=== PATIENT | female | born 1955 | race Caucasian/White ===

== ENCOUNTER → 2016-04-07 | Outpatient (CLI) | payer MEDICARE, OTHER ==
[2016-04-07 13:36] LABS: ALT 35 U/L (9-52); AST 35 U/L (14-36); Alkaline Phosphatase 88 U/L (38-126); Anion Gap 10 mmol/L; Blood Urea Nitrogen 16 mg/dL (7-17); Calcium 9.5 mg/dL (8.4-10.2); Carbon Dioxide 30 mmol/L (22-30); Chloride 104 mmol/L (98-107); Cholesterol 174 mg/dL (<200); Glucose 91 mg/dL (74-99); HDL Cholesterol 61 mg/dL (40-60); Non-African American GFR(MDRD) >60 (>60 ml/min/1.73 sqM); Potassium 4.4 mmol/L (3.5-5.1); Sodium 144 mmol/L (137-145); Total Bilirubin 0.9 mg/dL (0.2-1.3); Total Protein 7.1 g/dL (6.3-8.2); Triglycerides 88 mg/dL (<150)
== END | disposition home or self-care (01) ==
LOC: LABWHC1 11:45
PROVIDERS: ATTEND Internal Medicine Interventional Cardiology
DX: E78.2 Mixed hyperlipidemia (principal)
CPT/HCPCS: 36415; 80053; 80061

== ENCOUNTER → 2016-07-11 | Outpatient (CLI) | payer MEDICARE, OTHER ==
--- NOTE | 2016-07-12 11:35 | MM ---
Reason for exam: screening (asymptomatic). Last mammogram was performed 1 year and 1 month ago. History: Patient is postmenopausal and has history of endometrial cancer at age 24. Reductions of both breasts, 2003. Implant Removal of both breasts, 2001. Saline implants in both breasts, July 13, 1994. Saline implants in both breasts, July 13, 1984. Pre-pectoral silicone gel implants in both breasts, July 13, 1974. Took estrogen for 6 months. Physical Findings: A clinical breast exam by your physician is recommended on an annual basis and results should be correlated with mammographic findings. MG 3D Screening Mammo W/Cad Bilateral CC and MLO view(s) were taken. Prior study comparison: June 16, 2015, bilateral MG 3d screening mammo w/cad. April 16, 2012, bilateral digital screening mammo w/CAD. There are scattered fibroglandular densities. There is no discrete abnormality. No significant changes when compared with prior studies. ASSESSMENT: Negative, BI-RAD 1 RECOMMENDATION: Routine screening mammogram of both breasts in 1 year.
== END | disposition home or self-care (01) ==
LOC: RADMAMWWP 15:04
PROVIDERS: ATTEND Family Medicine
DX: Z12.31 Encounter for screening mammogram for malignant neoplasm of breast (principal)
CPT/HCPCS: 77063; G0202

== ENCOUNTER 2017-03-01 18:53 | Emergency (ER) | payer MEDICARE, OTHER ==
[~2017-03-01 18:53] MED LIST: SODIUM CHLORIDE 0.9% 1,000 ML BAG ONE
[2017-03-01] MEDS ORDERED: PANTOPRAZOLE 40 MG/10 ML VIAL ONE (22:35)
[2017-03-01] MEDS ORDERED: KETOROLAC 30 MG/ML 1 ML VIAL ONE (22:35)
[2017-03-01] MEDS ORDERED: ONDANSETRON 4 MG/2 ML VIAL ONE (22:35)
--- NOTE | 2017-03-02 09:46 | CT ---
EXAMINATION TYPE: CT abdomen pelvis w con DATE OF EXAM: 03/02/2017 COMPARISON: November 13, 2011 HISTORY: Abdominal pain, nausea vomiting diarrhea for [address] DLP: 617 mGycm Automated exposure control for dose reduction was used. TECHNIQUE: Helical acquisition of images was performed from the lung bases through the pelvis. 100 m L Omnipaque 300 was injected. Coronal and sagittal reformatted images reviewed at the workstation. FINDINGS: Lung bases are clear. There is a calcified granuloma at the left lung base which is unchanged since t he previous study in 2011. No pleural pericardial effusion is identified. There are multiple hypodens e foci within the liver which are most consistent with cysts. There is a hypervascular lesion noted i n the posterior right hepatic lobe which is unchanged when compared to the previous study and given i ts stability is most consistent with a hemangioma. The gallbladder is surgically absent. The spleen, adrenal glands, pancreas, and kidneys are unremarka ble. There is symmetric enhancement and excretion of contrast from both of the kidneys. No hydronephr osis is identified. The appendix is not definitively visualized. Nonspecific colonic wall thickening is noted in the proximal through mid transverse colon which could be due to mild colitis. There is mild diverticulosis without evidence of acute diverticulitis. The u rinary bladder is unremarkable. There is no free intraperitoneal air or free fluid. There are no abnormally enlarged mesenteric or re troperitoneal lymph nodes. Calcifications are identified in the abdominal aorta. Degenerative changes are noted in the lumbar spine with vacuum disc phenomenon noted at the level of L4-5 and L5-S1. IMPRESSION: Nonspecific colonic wall thickening is identified which could be due to mild colitis.
[2017-03-02 13:54] LABS: Basophils # (A) 0.1 k/uL (0-0.2); Basophils % (A) 1 %; Eosinophils # (A) 0.1 k/uL (0-0.7); Eosinophils % (A) 1 %; HGB 15.7 gm/dL (11.4-16.0); Lymphocytes % (A) 30 %; MCH 29.4 pg (25.0-35.0); MCHC 32.6 g/dL (31.0-37.0); MCV 90.2 fL (80.0-100.0); Mean Platelet Volume 7.6; Monocytes # (A) 0.4 k/uL (0-1.0); Monocytes % (A) 4 %; Neutrophils # (A) 6.3 k/uL (1.3-7.7); Neutrophils % (A) 63 %; Platelet Count 427 k/uL (150-450); RBC 5.32 m/uL (3.80-5.40); RDW 14.6 % (11.5-15.5); WBC 9.9 k/uL (3.8-10.6)
[2017-03-02 16:23] LABS: ALT 37 U/L (9-52); AST 27 U/L (14-36); Albumin 4.8 g/dL (3.5-5.0); Alkaline Phosphatase 86 U/L (38-126); Amylase 64 U/L (30-110); Anion Gap 14 mmol/L; Blood Urea Nitrogen 18 mg/dL (7-17); Calcium 10.1 mg/dL (8.4-10.2); Carbon Dioxide 26 mmol/L (22-30); Chloride 101 mmol/L (98-107); Glucose 87 mg/dL (74-99); Lipase 87 U/L (23-300); Magnesium 2.1 mg/dL (1.6-2.3); Potassium 4.4 mmol/L (3.5-5.1); Sodium 141 mmol/L (137-145); Total Bilirubin 0.5 mg/dL (0.2-1.3); Total Protein 7.9 g/dL (6.3-8.2)
[2017-03-02 16:33] LABS: Amorphous Sediment,Urine Occasional /hpf; Appearance,Urine Clear (Clear); Bacteria,Urine Many /hpf; Bilirubin,Urine Negative (Negative); Blood,Urine Moderate (Negative); Color,Urine Yellow; Glucose,Urine (UA) Negative (Negative); Ketones,Urine 2+ (Negative); Leukocyte Esterase,Urine Negative (Negative); Mucus,Urine Rare /hpf; Nitrite,Urine Negative (Negative); Protein,Urine Trace (Negative); RBC,Urine 10 /hpf (0-5); Specific Gravity,Urine >1.050 (1.001-1.035); Squamous Epithelial Cell,Urine 6 /hpf (0-4); Urobilinogen,Urine <2.0 mg/dL (<2.0); WBC,Urine 18 /hpf (0-5)
== END 2017-03-02 00:45 | disposition home or self-care (01) ==
LOC: EC 18:53
DX: K52.9 Noninfective gastroenteritis and colitis, unspecified (principal); R11.10 Vomiting, unspecified; Z90.49 Acquired absence of other specified parts of digestive tract
CPT/HCPCS: 36415; 80053; 82150; 83690; 83735; 85025; 81001; 87086; 74177; 99284; 96374; 96375 ×2; 96361; Q9967

== ENCOUNTER → 2017-04-02 | Day surgery (SDC) | payer MEDICARE, OTHER ==
[2017-03-28 15:12] VITALS: BMI 28.1
[~2017-04-02] MED LIST changes: +GLYCOPYRROLATE 0.2 MG/ML 2 ML VIAL ONE; +LACTATED RINGERS 1,000 ML IV SCH; +LIDOCAINE 1% 20 ML VIAL (10MG/ML) FOR IV START INTRADERMA PRN; +LIDOCAINE 1% INJ 10MG/ML (20 ML MDV) ONE; +PROPOFOL 10 MG/ML 20 ML VIAL IV ONE; -SODIUM CHLORIDE 0.9% 1,000 ML BAG ONE
[2017-04-02 10:33] VITALS: RESP 16; TEMP 97.3
[2017-04-02 11:43] VITALS: BP 138/82; PULSE 86
--- NOTE | 2017-04-07 18:55 | P.PCN ---
Date of Procedure: 04/02/17 Procedure(s) Performed: Procedure: Esophagogastroduodenoscopy and biopsy. Preoperative diagnosis: Chronic reflux symptoms requiring therapy. Postoperative diagnosis: 1. Small sliding hiatal hernia with no obvious esophagitis or complicated reflux disease. 2. Mild gastritis and duodenitis. 3. Multiple biopsies obtained from the duodenum, antrum and esophagus. Preparation and sedation: Was provided by anesthesia. Brief clinical history: The patient is a 61-year-old female who is scheduled for this evaluation because of chronic reflux symptoms requiring therapy. This evaluation is to assess for esophagitis, complicated reflux disease or other pathology. Procedure: With the patient on her left lateral decubitus position and after informed consent and adequate sedation, I passed the Olympus-GIF 160 video upper endoscope through the cricopharyngeus down the esophagus. GE junction was around 36 cm from the incisors and there was a small sliding hiatal hernia. The esophagus did not show any erosions, ulcers, strictures or Barboza's esophagus. The endoscope was then passed into the stomach which was insufflated with air and inspected in detail including the retroflex view in the cardia. There was some mottling and erythema in the antrum consistent with mild gastritis but no ulcers or erosions. Pyloric channel did not show any ulcers. Duodenal bulb, post bulbar area and descending duodenum showed minimal erythema but no ulcers or erosions. Because of her symptoms and findings, I obtained biopsies from the duodenum, antrum and esophagus then the endoscope was withdrawn. The patient tolerated the procedure well. Plan: The patient was reassured. Will await biopsy results. She will follow- up with you as planned and further plans will be made based on her course and biopsy results. We would be happy to see in follow-up if needed.
== END ==
LOC: ORWHC2ENDO 08:58
DX: K21.9 Gastro-esophageal reflux disease without esophagitis (principal); K29.70 Gastritis, unspecified, without bleeding; K44.9 Diaphragmatic hernia without obstruction or gangrene; K58.9 Irritable bowel syndrome, unspecified; I25.119 Atherosclerotic heart disease of native coronary artery with unspecified angina pectoris; I10 Essential (primary) hypertension; F17.210 Nicotine dependence, cigarettes, uncomplicated; E78.5 Hyperlipidemia, unspecified; E07.9 Disorder of thyroid, unspecified; J44.9 Chronic obstructive pulmonary disease, unspecified; F41.9 Anxiety disorder, unspecified; Z79.899 Other long term (current) drug therapy; Z88.2 Allergy status to sulfonamides
CPT/HCPCS: 88305; 88342; 43239; J2001; J2704

== ENCOUNTER → 2017-10-16 | Outpatient (CLI) | payer MEDICARE, OTHER ==
[2017-10-16 17:26] LABS: HCT 40.6 % (34.0-46.0); HGB 13.6 gm/dL (11.4-16.0); MCH 29.7 pg (25.0-35.0); MCHC 33.5 g/dL (31.0-37.0); MCV 88.7 fL (80.0-100.0); Mean Platelet Volume 6.2; Platelet Count 361 k/uL (150-450); RBC 4.58 m/uL (3.80-5.40); RDW 13.6 % (11.5-15.5); WBC 8.6 k/uL (3.8-10.6)
[2017-10-16 17:35] LABS: Partial Thromboplastin Time 24.3 sec (22.0-30.0); Prothrombin Time 9.9 sec (9.0-12.0)
[2017-10-16 17:43] LABS: ALT 36 U/L (9-52); AST 32 U/L (14-36)
== END | disposition home or self-care (01) ==
LOC: LABWHC1 16:45
PROVIDERS: ATTEND Psychiatry & Neurology Neurology
DX: D68.9 Coagulation defect, unspecified (principal)
CPT/HCPCS: 36415; 84450; 84460; 85027; 85610; 85730

== ENCOUNTER → 2017-11-12 | Outpatient (CLI) | payer MEDICARE, OTHER ==
[2017-11-12 15:05] LABS: Anion Gap 7 mmol/L; Blood Urea Nitrogen 15 mg/dL (7-17); Calcium 9.7 mg/dL (8.4-10.2); Carbon Dioxide 30 mmol/L (22-30); Chloride 101 mmol/L (98-107); Creatine Kinase 193 U/L (30-135); Glucose 90 mg/dL (74-99); Potassium 4.8 mmol/L (3.5-5.1); Sodium 138 mmol/L (137-145)
[2017-11-12 15:21] LABS: T4, Free (Free Thyroxine) 1.12 ng/dL (0.78-2.19)
== END | disposition home or self-care (01) ==
LOC: LABWHC1 14:09
PROVIDERS: ATTEND Psychiatry & Neurology Neurology
DX: R53.1 Weakness (principal); R25.2 Cramp and spasm
CPT/HCPCS: 36415; 80048; 82550; 82607; 83735; 84439; 84443

== ENCOUNTER → 2018-01-07 | Outpatient (CLI) | payer MEDICARE, OTHER ==
--- NOTE | 2018-01-07 10:38 | MM ---
Reason for exam: clinical finding. Last mammogram was performed 1 year and 6 months ago. History: Patient is postmenopausal and has history of endometrial cancer at age 24. Implant Removal of both breasts, 2004. Reductions of both breasts, 2003. Implant Removal of both breasts, 2001. Saline implants in both breasts, July 13, 1994. Saline implants in both breasts, July 13, 1984. Pre-pectoral silicone gel implants in both breasts, July 13, 1974. Took estrogen for 6 months beginning at age 44. Indicated problem(s): pain in the right breast. Physical Findings: Nurse did not find any significant physical abnormalities on exam. MG 3D Diag Mammo W/Cad PARAMJIT Bilateral CC and MLO view(s) were taken. Spot compression CC, spot compression MLO, and ML view(s) were taken of the left breast. Prior study comparison: July 11, 2016, bilateral MG 3d screening mammo w/cad. June 16, 2015, bilateral MG 3d screening mammo w/cad. There are scattered fibroglandular densities. There are two new left breast masses in the central slightly lateral left breast at anterior and middle depth. Anterior mass is 1.5cm from nipple and middle depth is 5.5cm from nipple. Left axillary node appears similar to 2013. These results were verbally communicated with the patient and result sheet given to the patient on 01/07/18. ASSESSMENT: Incomplete: need additional imaging evaluation, BI-RAD 0 RECOMMENDATION: Ultrasound of both breasts. (left lower outer quadrantand right breast pain area)
--- NOTE | 2018-01-07 10:43 | USB ---
Reason for exam: additional evaluation requested from abnormal screening. History: Patient is postmenopausal and has history of endometrial cancer at age 24. Implant Removal of both breasts, 2005. Reductions of both breasts, 2004. Implant Removal of both breasts, 2001. Saline implants in both breasts, July 13, 1994. Saline implants in both breasts, July 13, 1984. Pre-pectoral silicone gel implants in both breasts, July 13, 1974. Took estrogen for 6 months beginning at age 44. US Breast Workup Limited PARAMJIT Right limited breast ultrasound including focal area of concern, retroareolar and axilla demonstrates no cystic or solid lesion seen. Left limited breast ultrasound including focal area of concern, retroareolar and axilla demonstrates a 4 x 3 x 4mm lobular, mixed lesion at 4 o'clock. Thought to correlate with the middle depth mammographic mass. Suspicious, biopsy is recommended. Recommended for the anterior mass with radiology/pathology correlation. If biopsy is benign, 6 month follow up mammography recommended. If biopsy is malignant at 4 o'clock then stereotactic recommended. These results were verbally communicated with the patient and result sheet given to the patient on 01/07/18. ASSESSMENT: Suspicious, BI-RAD 4 RECOMMENDATION: Ultrasound core biopsy of the left breast. Called Dr. Shipley with mammographic findings and has scheduled an appointment for the patient for 02/05/18 at 1:[address] Ding. Biopsy scheduled for 01/22/18 at 1:00. PRELIMINARY REPORT CALLED AND FAXED TO DR. DING ON 01/07/18.
== END | disposition home or self-care (01) ==
LOC: RADMAMWWP 07:35
PROVIDERS: ATTEND Family Medicine
DX: N64.4 Mastodynia (principal); R92.8 Other abnormal and inconclusive findings on diagnostic imaging of breast
CPT/HCPCS: 77066; 76642; G0279; 77062

== ENCOUNTER → 2018-08-18 | Outpatient (CLI) | payer MEDICARE, OTHER ==
[2018-08-18 12:55] LABS: INR 0.9 (<1.2); Partial Thromboplastin Time 23.6 sec (22.0-30.0); Prothrombin Time 9.7 sec (9.0-12.0)
[2018-08-18 21:11] LABS: Magnesium 2.1 mg/dL (1.5-2.4)
[2018-08-19 13:36] LABS: APTT 34 Sec(s) (<43); Dilute Russell Viper Venom 39 Sec(s) (<44)
== END | disposition home or self-care (01) ==
LOC: LABWHC1 11:53
PROVIDERS: ATTEND Psychiatry & Neurology Neurology
DX: D68.9 Coagulation defect, unspecified (principal); M60.9 Myositis, unspecified; R25.2 Cramp and spasm; G43.909 Migraine, unspecified, not intractable, without status migrainosus
CPT/HCPCS: 36415; 82550; 83735; 85610; 85613; 85730

== ENCOUNTER 2018-10-13 12:43 | Inpatient (IN) | payer MEDICARE, OTHER ==
[2018-10-13] MEDS ORDERED: SODIUM CHLORIDE 0.9% 1,000 ML IV STA (13:02)
[2018-10-13] MEDS ORDERED: ONDANSETRON 4 MG/2 ML VIAL IVP STA (13:02)
[2018-10-13] MEDS ORDERED: SODIUM CHLORIDE 0.9% 500 ML 500 ML IV STA (13:02)
--- NOTE | 2018-10-13 13:06 | ED ---
General Adult HPI - General Chief complaint: Chest Pain Stated complaint: Chest pain/Lt shoulder pain Time Seen by Provider: 10/13/18 12:45 Source: patient, RN notes reviewed Mode of arrival: wheelchair Limitations: no limitations - History of Present Illness Initial comments: This is a 63-year-old female who presents emergency Department with a past me dical history significant for high blood pressure high cholesterol. Patient states on she woke up from a sound sleep with a severe headache and began vomiting. Patient states she has been nauseous and vomiting since. Patient states on Saturday she started having diarrhea as well. Patient states she had one episode of significant chest pain that lasted about 15 minutes which started in the center of her chest radiating around under her left breast into her back. Patient states it subsided until this morning when she was walking a short distance and came on again and radiated in the same fashion and lasts about 15 minutes. Patient states she currently is chest pain-free. Patient states her headache is mild no way near as severe as it was when it started on . Patient denies any numbness weakness per patient denies lightheadedness or dizziness. Patient denies any fever chills. Patient states she still is very nauseated. Patient denies any abdominal pain currently. Patient states she has had pancreatitis in the past. - Related Data Home Medications Medication Instructions Recorded Confirmed ALPRAZolam [Xanax] 1 mg PO TID PRN 05/27/15 10/13/18 Levothyroxine Sodium [Synthroid] 25 mcg PO DAILY 05/27/15 10/13/18 Lisinopril-Hctz 10-12.5 mg 1 tab PO DAILY 05/27/15 10/13/18 [Zestoretic 10-12.5] Citalopram Hydrobromide 40 mg PO DAILY 01/10/18 10/13/18 [Citalopram HBr] Pantoprazole [Protonix] 40 mg PO BID 01/10/18 10/13/18 Baclofen [Lioresal] 20 mg PO HS 10/13/18 10/13/18 Allergies Allergy/AdvReac Type Severity Reaction Status Date / Time Sulfa (Sulfonamide Allergy Severe Anaphylaxis Verified 10/13/18 13:16 Antibiotics) Review of Systems ROS Statement: Those systems with pertinent positive or pertinent negative responses have been documented in the HPI. ROS Other: All systems not noted in ROS Statement are negative. Past Medical History Past Medical History: Cancer, Hyperlipidemia, Hypertension, Neurologic Disorder, Thyroid Disorder Additional Past Medical History / Comment(s): Hx. Migraines, Irritable bowel syndrome, cervical ca 1980 History of Any Multi-Drug Resistant Organisms: None Reported Past Surgical History: Breast Surgery, Cholecystectomy, Hysterectomy Additional Past Surgical History / Comment(s): Cervical fusion. EXPLORATORY LAP. BREAST IMPLANTS IN AND OUT, breast reduction 2003. COLONOSCOPY. EGD Past Anesthesia/Blood Transfusion Reactions: Previous Problems w/ Anesthesia Additional Past Anesthesia/Blood Transfusion Reaction / Comment(s): Wakes up slowly Past Psychological History: Anxiety, Depression Smoking Status: Former smoker Past Alcohol Use History: Occasional Past Drug Use History: Marijuana - Past Family History Father History Unknown: Yes Family Medical History: No Reported History Additional Family Medical History / Comment(s): of heart disease in his 60's Mother Family Medical History: Cancer Additional Family Medical History / Comment(s): of lung cancer General Exam - General Exam Comments Initial Comments: GENERAL: Patient is well-developed and well-nourished. Patient is nontoxic and well- hydrated and is in mild distress. ENT: Neck is soft and supple. No significant lymphadenopathy is noted. Oropharynx is clear. Dry mucous membranes. Neck has full range of motion without eliciting any pain. EYES: The sclera were anicteric and conjunctiva were pink and moist. Extraocular movements were intact and pupils were equal round and reactive to light. Eyelids were unremarkable. PULMONARY: Unlabored respirations. Good breath sounds bilaterally. No audible rales rhonchi or wheezing was noted. CARDIOVASCULAR: There is a regular rate and rhythm without any murmurs gallops or rubs. ABDOMEN: Soft and nontender with normal bowel sounds. No palpable organomegaly was noted. There is no palpable pulsatile mass. SKIN: Skin is clear with no lesions or rashes and otherwise unremarkable. NEUROLOGIC: Patient is alert and oriented x3. Cranial nerves II through XII are grossly intact. Motor and sensory are also intact. Normal speech, volume and content. Symmetrical smile. MUSCULOSKELETAL: Normal extremities with adequate strength and full range of motion. LYMPHATICS: No significant lymphadenopathy is noted PSYCHIATRIC: Normal psychiatric evaluation. Limitations: no limitations Course Vital Signs 10/13/18 10/13/18 10/13/18 12:45 12:59 13:47 Temperature 98.0 F Pulse Rate 90 88 Pulse Rate [ 89 Health Care Consultant ] Respiratory 18 18 Rate Blood Pressure 137/87 137/94 O2 Sat by Pulse 98 98 Oximetry 10/13/18 15:28 Temperature Pulse Rate 85 Pulse Rate [ Health Care Consultant ] Respiratory 16 Rate Blood Pressure 115/76 O2 Sat by Pulse 96 Oximetry Medical Decision Making - Medical Decision Making EKG shows normal sinus rhythm at 67 bpm VT interval is 142 QRS is 90 QT interval 376 QTC is 397. Patient's EKG shows no ST segment elevation or depression. Patient does have Q waves in leads 3 and aVF Chest x-ray shows no acute abnormality. Computed tomography scan of the brain shows no acute abnormality Patient states she still mildly nauseous but hasn't quite a bit of gastric reflux still desires the patient some Pepcid 20 noted. Patient was given Nitropaste and aspirin per rectum because of a gastric reflux. Patient has had no chest pain while in the emergency department. I spoke with Dr. Shipley and he agreed to admit the patient admitted the patient and consult cardiology. I continue the aspirin on the floor and Nitropaste on the floor - Lab Data Result diagrams: 10/13/18 12:59 10/13/18 12:59 Lab Results 10/13/18 10/13/18 10/13/18 Range/Units 12:59 12:59 12:59 WBC 10.8 H (3.8-10.6) k/uL RBC 5.30 (3.80-5.40) m/uL Hgb 15.8 (11.4-16.0) gm/dL Hct 47.0 H (34.0-46.0) % MCV 88.6 (80.0-100.0) fL MCH 29.9 (25.0-35.0) pg MCHC 33.7 (31.0-37.0) g/dL RDW 13.7 (11.5-15.5) % Plt Count 483 H (150-450) k/uL Neutrophils % 64 % Lymphocytes % 29 % Monocytes % 4 % Eosinophils % 2 % Basophils % 0 % Neutrophils # 6.9 (1.3-7.7) k/uL Lymphocytes # 3.1 (1.0-4.8) k/uL Monocytes # 0.4 (0-1.0) k/uL Eosinophils # 0.2 (0-0.7) k/uL Basophils # 0.1 (0-0.2) k/uL PT 9.8 (9.0-12.0) sec INR 0.9 (<1.2) APTT 25.1 (22.0-30.0) sec Sodium 136 L (137-145) mmol/L Potassium 4.4 (3.5-5.1) mmol/L Chloride 101 (98-107) mmol/L Carbon Dioxide 22 (22-30) mmol/L Anion Gap 13 mmol/L BUN 29 H (7-17) mg/dL Creatinine 1.17 H (0.52-1.04) mg/dL Est GFR (CKD-EPI)AfAm 57 (>60 ml/min/1.73 sqM) Est GFR (CKD-EPI)NonAf 49 (>60 ml/min/1.73 sqM) Glucose 105 H (74-99) mg/dL Calcium 9.7 (8.4-10.2) mg/dL Magnesium 2.2 (1.6-2.3) mg/dL Total Bilirubin 0.7 (0.2-1.3) mg/dL AST 39 H (14-36) U/L ALT 29 (9-52) U/L Alkaline Phosphatase 77 (38-126) U/L Troponin I (0.000-0.034) ng/mL Total Protein 8.0 (6.3-8.2) g/dL Albumin 4.8 (3.5-5.0) g/dL Amylase 68 (30-110) U/L Lipase 155 (23-300) U/L 10/13/18 Range/Units 12:59 WBC (3.8-10.6) k/uL RBC (3.80-5.40) m/uL Hgb (11.4-16.0) gm/dL Hct (34.0-46.0) % MCV (80.0-100.0) fL MCH (25.0-35.0) pg MCHC (31.0-37.0) g/dL RDW (11.5-15.5) % Plt Count (150-450) k/uL Neutrophils % % Lymphocytes % % Monocytes % % Eosinophils % % Basophils % % Neutrophils # (1.3-7.7) k/uL Lymphocytes # (1.0-4.8) k/uL Monocytes # (0-1.0) k/uL Eosinophils # (0-0.7) k/uL Basophils # (0-0.2) k/uL PT (9.0-12.0) sec INR (<1.2) APTT (22.0-30.0) sec Sodium (137-145) mmol/L Potassium (3.5-5.1) mmol/L Chloride (98-107) mmol/L Carbon Dioxide (22-30) mmol/L Anion Gap mmol/L BUN (7-17) mg/dL Creatinine (0.52-1.04) mg/dL Est GFR (CKD-EPI)AfAm (>60 ml/min/1.73 sqM) Est GFR (CKD-EPI)NonAf (>60 ml/min/1.73 sqM) Glucose (74-99) mg/dL Calcium (8.4-10.2) mg/dL Magnesium (1.6-2.3) mg/dL Total Bilirubin (0.2-1.3) mg/dL AST (14-36) U/L ALT (9-52) U/L Alkaline Phosphatase (38-126) U/L Troponin I <0.012 (0.000-0.034) ng/mL Total Protein (6.3-8.2) g/dL Albumin (3.5-5.0) g/dL Amylase (30-110) U/L Lipase (23-300) U/L Disposition Clinical Impression: Chest pain, Nausea, Gastroesophageal reflux Disposition: ADMITTED IP TO THIS [facility] Referrals: Tonny Shipley MD [Primary Care Provider] - 1-2 days Time of Disposition: 15:18
[2018-10-13] MEDS ORDERED: NITROGLYCERIN OINT 1 INCH/GM PACKET TOPICAL STA (13:10)
[2018-10-13 13:25] LABS: Basophils # (A) 0.1 k/uL (0-0.2); Basophils % (A) 0 %; Eosinophils # (A) 0.2 k/uL (0-0.7); Eosinophils % (A) 2 %; HGB 15.8 gm/dL (11.4-16.0); Lymphocytes # (A) 3.1 k/uL (1.0-4.8); Lymphocytes % (A) 29 %; MCH 29.9 pg (25.0-35.0); MCHC 33.7 g/dL (31.0-37.0); MCV 88.6 fL (80.0-100.0); Mean Platelet Volume 6.3; Monocytes # (A) 0.4 k/uL (0-1.0); Monocytes % (A) 4 %; Neutrophils # (A) 6.9 k/uL (1.3-7.7); Neutrophils % (A) 64 %; Platelet Count 483 k/uL (150-450); RDW 13.7 % (11.5-15.5); WBC 10.8 k/uL (3.8-10.6)
[2018-10-13 13:30] LABS: INR 0.9 (<1.2); Partial Thromboplastin Time 25.1 sec (22.0-30.0); Prothrombin Time 9.8 sec (9.0-12.0)
[2018-10-13 13:38] LABS: Albumin 4.8 g/dL (3.5-5.0); Calcium 9.7 mg/dL (8.4-10.2); Magnesium 2.2 mg/dL (1.6-2.3); Potassium 4.4 mmol/L (3.5-5.1); Total Bilirubin 0.7 mg/dL (0.2-1.3)
--- NOTE | 2018-10-13 13:45 | CT ---
EXAMINATION TYPE: CT brain wo con DATE OF EXAM: 10/13/2018 COMPARISON: 12/28/2012 HISTORY: Headache with dizziness. History of migraines CT DLP: 1142.4 mGycm Automated exposure control for dose reduction was used. TECHNIQUE: CT scan of the head is performed without contrast. FINDINGS: There is no acute intracranial hemorrhage or midline shift identified. There is diffuse v entricular and sulcal prominence consistent with diffuse age-related cerebral atrophy. The small-white matter interface is preserved The globes are intact and the visualized sinuses are clear. Bilatera l clarence bullosa are incidentally seen. Atherosclerosis of the intracranial vasculature is noted. IMPRESSION: No acute intracranial process.
--- NOTE | 2018-10-13 13:46 | XR ---
EXAMINATION TYPE: XR chest 2V DATE OF EXAM: 10/13/2018 COMPARISON: Chest x-ray May 27, 2015 HISTORY: Chest pain today. TECHNIQUE: Frontal and lateral views of the chest are obtained. FINDINGS: There is chronic parenchymal change without suspicious focal air space opacity, pleural ef fusion, or pneumothorax seen. The cardiac silhouette size remains within normal limits. Overlying EK G leads are redemonstrated. Anterior fusion plate lower cervical spine is again seen. Cholecystectomy clips are noted. IMPRESSION: Chronic changes without acute pulmonary process.
[2018-10-13] MEDS ORDERED: FAMOTIDINE 20 MG/2 ML VIAL IV STA (15:07)
[2018-10-13] MEDS ORDERED: ASPIRIN 300 MG SUPP RECTAL STA (15:15)
[2018-10-13] MEDS ORDERED: NITROGLYCERIN SL TABS 0.4 MG TAB SUBLINGUAL PRN (15:18)
[2018-10-13] MEDS ORDERED: PANTOPRAZOLE 40 MG/10 ML VIAL IVP STA (15:25)
[2018-10-13] MEDS ORDERED: ONDANSETRON 4 MG/2 ML VIAL IVP PRN (15:25)
--- NOTE | 2018-10-13 17:12 | P.HPIM ---
History of Present Illness 63-year-old female presented emergency room after 5 days of complaints of headache vomiting and diarrhea. Patient states she had chest pressure 2. States the nausea vomiting and headache improving diarrhea remains. Patient has history of pancreatitis lipase amylase normal in emergency room. Patient has history of migraines for which she sees Dr. Conti. Patient has a history of IBS and GERD for which she is seeing Dr. Phan in the past hopes to become patient of Dr. Jeffers. a Review of Systems Constitutional: Reports chronic headaches Cardiovascular: Reports chest pain Gastrointestinal: Reports diarrhea, Reports nausea, Reports vomiting Past Medical History Past Medical History: Cancer, Hyperlipidemia, Hypertension, Neurologic Disorder, Thyroid Disorder Additional Past Medical History / Comment(s): Hx. Migraines, Irritable bowel syndrome, cervical ca 1979 History of Any Multi-Drug Resistant Organisms: None Reported Past Surgical History: Breast Surgery, Cholecystectomy, Hysterectomy Additional Past Surgical History / Comment(s): Cervical fusion. EXPLORATORY LAP. BREAST IMPLANTS IN AND OUT, breast reduction 2003. COLONOSCOPY. EGD Past Anesthesia/Blood Transfusion Reactions: Previous Problems w/ Anesthesia Additional Past Anesthesia/Blood Transfusion Reaction / Comment(s): Wakes up slowly Past Psychological History: Anxiety, Depression Smoking Status: Former smoker Past Alcohol Use History: Occasional Past Drug Use History: Marijuana - Past Family History Father History Unknown: Yes Family Medical History: No Reported History Additional Family Medical History / Comment(s): of heart disease in his 60's Mother Family Medical History: Cancer Additional Family Medical History / Comment(s): of lung cancer Medications and Allergies Home Medications Medication Instructions Recorded Confirmed Type ALPRAZolam [Xanax] 1 mg PO TID PRN 05/27/15 10/13/18 History Levothyroxine Sodium [Synthroid] 25 mcg PO DAILY 05/27/15 10/13/18 History Lisinopril-Hctz 10-12.5 mg 1 tab PO DAILY 05/27/15 10/13/18 History [Zestoretic 10-12.5] Citalopram Hydrobromide 40 mg PO DAILY 01/10/18 10/13/18 History [Citalopram HBr] Pantoprazole [Protonix] 40 mg PO BID 01/10/18 10/13/18 History Baclofen [Lioresal] 20 mg PO HS 10/13/18 10/13/18 History Allergies Allergy/AdvReac Type Severity Reaction Status Date / Time Sulfa (Sulfonamide Allergy Severe Anaphylaxis Verified 10/13/18 13:16 Antibiotics) Physical Exam Vitals: Vital Signs Temp Pulse Pulse Resp BP Pulse Ox 10/13/18 15:47 98.1 F 10/13/18 15:28 85 16 115/76 96 10/13/18 13:47 88 18 137/94 98 10/13/18 12:59 89 10/13/18 12:45 98.0 F 90 18 137/87 98 Intake and Output 10/13/18 10/13/18 10/13/18 06:59 14:59 22:59 Other: Weight 74.843 kg - Constitutional General appearance: mild distress - EENT Eyes: PERRLA Ears: bilateral: normal - Neck Neck: normal ROM - Respiratory Respiratory: bilateral: CTA - Cardiovascular Rhythm: regular - Gastrointestinal General gastrointestinal: normal bowel sounds, soft - Integumentary Integumentary: normal - Neurologic Neurologic: CNII-XII intact - Psychiatric Psychiatric: A&O x's 3, appropriate affect, intact judgment & insight Results CBC & Chem 7: 10/13/18 12:59 10/13/18 12:59 Labs: Abnormal Lab Results - Last 24 Hours (Table) 10/13/18 10/13/18 Range/Units 12:59 12:59 WBC 10.8 H (3.8-10.6) k/uL Hct 47.0 H (34.0-46.0) % Plt Count 483 H (150-450) k/uL Sodium 136 L (137-145) mmol/L BUN 29 H (7-17) mg/dL Creatinine 1.17 H (0.52-1.04) mg/dL Glucose 105 H (74-99) mg/dL AST 39 H (14-36) U/L Chest x-ray: report reviewed CT Scan - head: report reviewed Assessment and Plan Plan: Assessment Chest pain troponin negative 1 Nausea with history of reflux Headache resolving history of migraine sees Dr. Conti Hyperlipidemia Hypertension Hypothyroidism IBS History of cervical cancer History of pancreatitis Plan Cardiology consultation
[2018-10-13] MEDS: PANTOPRAZOLE 40 MG TABLET PO SCH (17:47)
[2018-10-13] MEDS: ACETAMINOPHEN TAB 325 MG TAB PO PRN (17:49)
[2018-10-13] MEDS: NITROGLYCERIN OINT 1 INCH/GM PACKET TOPICAL SCH (18:09)
[2018-10-13] MEDS ORDERED: KETOROLAC 30 MG/ML 1 ML VIAL IVP STA (20:15)
[2018-10-13] MEDS: ALPRAZolam 1 MG TAB PO PRN (20:22)
[2018-10-13] MEDS: BACLOFEN 10 MG TAB PO SCH (20:22)
[2018-10-14] MEDS: NITROGLYCERIN OINT 1 INCH/GM PACKET TOPICAL SCH ×4 (00:17→17:07)
[2018-10-14 03:25] LABS: Cholesterol 265 mg/dL (<200); HDL Cholesterol 48 mg/dL (40-60); LDL Cholesterol,Calculated 189 mg/dL (0-99); Triglycerides 140 mg/dL (<150)
[2018-10-14] MEDS: PANTOPRAZOLE 40 MG TABLET PO SCH ×2 (06:59→17:06)
[2018-10-14] MEDS: LEVOTHYROXINE 25 MCG TAB PO SCH (06:59)
[2018-10-14] MEDS: CITALOPRAM HYDROBROMIDE 20 MG TAB PO SCH (08:55)
[2018-10-14] MEDS: ASPIRIN 325 MG TAB PO SCH (08:55)
[2018-10-14] MEDS: LISINOPRIL-HCTZ 10-12.5 MG 1 EACH TAB PO SCH (08:55)
[2018-10-14] MEDS ORDERED: REGADENOSON 0.4 MG/5 ML SYRINGE IV ONE (08:58)
[2018-10-14] MEDS ORDERED: AMINOPHYLLINE 500 MG/20 ML VIAL IV PRN (08:58)
[2018-10-14] MEDS ORDERED: CAFFEINE CITRATE 60 MG/3 ML VIAL IV PRN (08:58)
--- NOTE | 2018-10-14 08:58 | P.CRDCN ---
History of Present Illness Consult date: 10/14/18 Chief complaint: Chest pain History of present illness: This is a pleasant 63-year-old female patient with hypertension, dyslipidemia not on any treatment because of statin intolerance, as well as history of smoking, and significant family history of coronary artery disease with her father, presented to the emergency room complaining of chest discomfort. For the last few days, she has been experiencing intermittent episodes of chest discomfo rt. The discomfort is mainly in the mid of the chest, as a shooting kind of discomfort, with radiation to the left shoulder and left arm, and with associated symptoms of sweating. The chest discomfort is of variable duration. No dizziness or lightheadedness, heart racing or fluttering, or syncope. In term of workup, the EKG showed sinus rhythm without any significant ST or T-wave abnormalities concerning for ischemia. 3 sets of cardiac enzymes were checked and came in to be unremarkable. I did recommend proceeding with a stress test to rule out severe underlying coronary artery disease and also I will obtain an echocardiogram was Doppler. We'll continue following up with the patient. Past Medical History Past Medical History: Cancer, Hyperlipidemia, Hypertension, Neurologic Disorder, Thyroid Disorder Additional Past Medical History / Comment(s): Hx. Migraines, Irritable bowel syndrome, cervical ca 1979 History of Any Multi-Drug Resistant Organisms: None Reported Past Surgical History: Breast Surgery, Cholecystectomy, Hysterectomy Additional Past Surgical History / Comment(s): Cervical fusion. EXPLORATORY LAP. BREAST IMPLANTS IN AND OUT, breast reduction 2003. COLONOSCOPY. EGD Past Anesthesia/Blood Transfusion Reactions: Previous Problems w/ Anesthesia Additional Past Anesthesia/Blood Transfusion Reaction / Comment(s): Wakes up slowly Past Psychological History: Anxiety, Depression Smoking Status: Former smoker Past Alcohol Use History: Occasional Past Drug Use History: Marijuana - Past Family History Father History Unknown: Yes Family Medical History: No Reported History Additional Family Medical History / Comment(s): of heart disease in his 60's Mother Family Medical History: Cancer Additional Family Medical History / Comment(s): of lung cancer Medications and Allergies Home Medications Medication Instructions Recorded Confirmed Type ALPRAZolam [Xanax] 1 mg PO TID PRN 05/27/15 10/13/18 History Levothyroxine Sodium [Synthroid] 25 mcg PO DAILY 05/27/15 10/13/18 History Lisinopril-Hctz 10-12.5 mg 1 tab PO DAILY 05/27/15 10/13/18 History [Zestoretic 10-12.5] Citalopram Hydrobromide 40 mg PO DAILY 01/10/18 10/13/18 History [Citalopram HBr] Pantoprazole [Protonix] 40 mg PO BID 01/10/18 10/13/18 History Baclofen [Lioresal] 20 mg PO HS 10/13/18 10/13/18 History Allergies Allergy/AdvReac Type Severity Reaction Status Date / Time Sulfa (Sulfonamide Allergy Severe Anaphylaxis Verified 10/13/18 13:16 Antibiotics) Physical Exam Vitals: Vital Signs Temp Pulse Pulse Resp BP BP Pulse Ox 10/14/18 04:00 50 L 16 144/79 95 10/14/18 00:00 98 F 58 L 16 115/65 96 10/13/18 20:00 98.2 F 68 16 127/73 94 L 10/13/18 18:04 98.1 F 67 166/79 100 10/13/18 15:47 98.1 F 10/13/18 15:28 85 16 115/76 96 10/13/18 13:47 88 18 137/94 98 10/13/18 12:59 89 10/13/18 12:45 98.0 F 90 18 137/87 98 Intake and Output 10/13/18 10/14/18 10/14/18 22:59 06:59 14:59 Intake Total 480 Balance 480 Intake: Oral 480 Other: Voiding Method Toilet # Voids 1 1 Weight 74.3 kg 73.7 kg - Constitutional General appearance: no acute distress - Respiratory Respiratory: bilateral: CTA - Cardiovascular Rhythm: regular Heart sounds: normal: S1, S2 Results 10/13/18 12:59 10/13/18 12:59 Cardiac Enzymes 10/13/18 10/13/18 10/13/18 Range/Units 12:59 12:59 18:40 AST 39 H (14-36) U/L Troponin I <0.012 <0.012 (0.000-0.034) ng/mL 10/14/18 Range/Units 00:30 AST (14-36) U/L Troponin I <0.012 (0.000-0.034) ng/mL Coagulation 10/13/18 Range/Units 12:59 PT 9.8 (9.0-12.0) sec APTT 25.1 (22.0-30.0) sec Lipids 10/13/18 Range/Units 12:59 Triglycerides 140 (<150) mg/dL Cholesterol 265 H (<200) mg/dL HDL Cholesterol 48 (40-60) mg/dL CBC 10/13/18 Range/Units 12:59 WBC 10.8 H (3.8-10.6) k/uL RBC 5.30 (3.80-5.40) m/uL Hgb 15.8 (11.4-16.0) gm/dL Hct 47.0 H (34.0-46.0) % Plt Count 483 H (150-450) k/uL Comprehensive Metabolic Panel 10/13/18 Range/Units 12:59 Sodium 136 L (137-145) mmol/L Potassium 4.4 (3.5-5.1) mmol/L Chloride 101 (98-107) mmol/L Carbon Dioxide 22 (22-30) mmol/L BUN 29 H (7-17) mg/dL Creatinine 1.17 H (0.52-1.04) mg/dL Glucose 105 H (74-99) mg/dL Calcium 9.7 (8.4-10.2) mg/dL AST 39 H (14-36) U/L ALT 29 (9-52) U/L Alkaline Phosphatase 77 (38-126) U/L Total Protein 8.0 (6.3-8.2) g/dL Albumin 4.8 (3.5-5.0) g/dL Current Medications Generic Name Dose Route Start Last Admin Trade Name Freq PRN Reason Stop Dose Admin Acetaminophen 650 mg 10/13/18 17:07 10/13/18 17:49 Tylenol Tab PO 650 mg Q6HR PRN Administration Mild Pain or Fever > 100.5 Alprazolam 1 mg 10/13/18 15:50 10/13/18 20:22 Xanax PO 1 mg TID PRN Administration Anxiety Aspirin 325 mg 10/14/18 09:00 Aspirin PO DAILY ELIO Baclofen 20 mg 10/13/18 21:00 10/13/18 20:22 Lioresal PO 20 mg HS ELIO Administration Citalopram Hydrobromide 40 mg 10/14/18 09:00 Celexa PO DAILY [facility] Lisinopril/HCTZ 1 each 10/14/18 09:00 Zestoretic 10-12.5 PO DAILY [facility] Levothyroxine Sodium 25 mcg 10/14/18 06:30 10/14/18 06:59 Synthroid PO 25 mcg DAILY@0630 ELIO Administration Nitroglycerin 1 inch 10/13/18 18:00 10/14/18 06:14 Nitro-Bid Oint TOPICAL Not Given Q6HR [facility] Nitroglycerin 0.4 mg 10/13/18 15:18 Nitrostat SUBLINGUAL Q5M PRN Chest Pain Ondansetron HCl 4 mg 10/13/18 15:25 Zofran IVP Q6HR PRN Nausea And Vomiting Pantoprazole Sodium 40 mg 10/13/18 17:30 10/14/18 06:59 Protonix PO 40 mg AC-BID ELIO Administration Intake and Output 10/13/18 10/14/18 10/14/18 22:59 06:59 14:59 Intake Total 480 Balance 480 Intake: Oral 480 Other: Voiding Method Toilet # Voids 1 1 Weight 74.3 kg 73.7 kg 10/13/18 12:59 10/13/18 12:59 Assessment and Plan Assessment: Assessment #1 intermittent episodes of chest discomfort #2 hypertension #3 dyslipidemia #4 history of smoking #5 family history of CAD Plan #1 the patient was ruled out for acute coronary syndrome #2 I recommended proceeding with a stress test and echocardiogram #3 follow-up with the patient
[2018-10-14] MEDS ORDERED: SODIUM CHLORIDE 0.9% IV ONE (09:30)
[2018-10-14] MEDS ORDERED: DIPYRIDAMOLE IV ONE (09:30)
[2018-10-14] MEDS: ALPRAZolam 1 MG TAB PO PRN ×2 (10:15→21:39)
[2018-10-14] MEDS: ACETAMINOPHEN TAB 325 MG TAB PO PRN (10:15)
--- NOTE | 2018-10-14 10:56 | P.PN ---
Subjective Patient complaining of migraine with aura this morning. We'll start saline 75 an hour. Had cardiology consultation scheduled for this stress echo tomorrow Objective - Vital Signs Vital signs: Vital Signs Temp 98.3 F 10/14/18 08:00 Pulse 63 10/14/18 08:00 Resp 16 10/14/18 08:00 BP 131/82 10/14/18 08:00 Pulse Ox 95 10/14/18 08:00 Intake & Output 10/13/18 10/14/18 10/14/18 18:59 06:59 18:59 Intake Total 480 Balance 480 Weight 74.3 kg 73.7 kg Intake: Oral 480 Other: Voiding Method Toilet Toilet # Voids 1 1 2 - EENT Eyes: Present: PERRLA Ears: bilateral: normal - Neck Neck: Present: normal ROM - Respiratory Respiratory: bilateral: CTA - Cardiovascular Rhythm: regular - Gastrointestinal General gastrointestinal: Present: normal bowel sounds, soft - Integumentary Integumentary: Present: normal - Neurologic Neurologic: Present: CNII-XII intact - Psychiatric Psychiatric: Present: A&O x's 3, appropriate affect, intact judgment & insight - Labs CBC & Chem 7: 10/13/18 12:59 10/13/18 12:59 Labs: Abnormal Lab Results - Last 24 Hours (Table) 10/13/18 10/13/18 10/13/18 Range/Units 12:59 12:59 12:59 WBC 10.8 H (3.8-10.6) k/uL Hct 47.0 H (34.0-46.0) % Plt Count 483 H (150-450) k/uL Sodium 136 L (137-145) mmol/L BUN 29 H (7-17) mg/dL Creatinine 1.17 H (0.52-1.04) mg/dL Glucose 105 H (74-99) mg/dL AST 39 H (14-36) U/L Cholesterol 265 H (<200) mg/dL LDL Cholesterol, Calc 189 H (0-99) mg/dL Assessment and Plan Plan: Assessment Chest pain troponins negative 3 Nausea vomiting diarrhea History of hyperlipidemia Hypertension Hypothyroidism Migraine sees Dr. Conti IBS will be following with Dr. Hull GERD History of cervical cancer History of pancreatitis Plan IV normal saline 75 an hour 1liter Stress echo tomorrow
[2018-10-14] MEDS: SODIUM CHLORIDE 0.9% 1,000 ML IV SCH (11:03)
[2018-10-14] MEDS ORDERED: ALBUTEROL NEBULIZED 2.5 MG/3 ML INHALATION PRN (14:25)
[2018-10-14] MEDS: SYMBICORT 160-4.5 MCG INHALER INHALATION SCH ×2 (15:40→19:23)
[2018-10-14] MEDS ORDERED: SYMBICORT 160-4.5 MCG INHALER INHALATION SCH (20:00)
[2018-10-14] MEDS: BACLOFEN 10 MG TAB PO SCH (21:39)
[2018-10-15] MEDS: NITROGLYCERIN OINT 1 INCH/GM PACKET TOPICAL SCH ×5 (00:23→23:25)
[2018-10-15] MEDS: SODIUM CHLORIDE 0.9% 1,000 ML IV SCH ×2 (06:35→18:41)
[2018-10-15] MEDS: PANTOPRAZOLE 40 MG TABLET PO SCH ×3 (06:39→15:35)
[2018-10-15] MEDS: LEVOTHYROXINE 25 MCG TAB PO SCH (06:39)
[2018-10-15] MEDS: SYMBICORT 160-4.5 MCG INHALER INHALATION SCH ×2 (07:58→20:01)
[2018-10-15] MEDS ORDERED: CAFFEINE CITRATE 60 MG/3 ML VIAL IV PRN (08:09)
[2018-10-15] MEDS ORDERED: AMINOPHYLLINE 500 MG/20 ML VIAL IV PRN (08:09)
[2018-10-15] MEDS ORDERED: REGADENOSON 0.4 MG/5 ML SYRINGE IV ONE (08:09)
[2018-10-15] MEDS ORDERED: SODIUM CHLORIDE 0.9% IV ONE (08:30)
[2018-10-15] MEDS ORDERED: DIPYRIDAMOLE IV ONE (08:30)
[2018-10-15] MEDS: ALPRAZolam 1 MG TAB PO PRN ×2 (11:08→21:31)
[2018-10-15] MEDS: LISINOPRIL-HCTZ 10-12.5 MG 1 EACH TAB PO SCH (11:09)
[2018-10-15] MEDS: ACETAMINOPHEN TAB 325 MG TAB PO PRN (11:09)
[2018-10-15] MEDS: ASPIRIN 325 MG TAB PO SCH (11:09)
[2018-10-15] MEDS: CITALOPRAM HYDROBROMIDE 20 MG TAB PO SCH (11:09)
--- NOTE | 2018-10-15 11:30 | P.STRESS ---
- Stress Test Note Stress Test Results/Findings: Exam Performed: NM stress persantine cardiolite Exam Date: 10/15/18 Reason for Exam: CHEST PAIN / SOB Height: 5 ft 3 in Weight: 73.8 kg Protocol: PERSANTINE Stage: NA Duration of Exercise: NA Resting Heart Rate: 68 Resting Blood Pressure: 150/103 Maximum Achieved Heart Rate: 90 Maximum Achieved Blood Pressure: 167/103 85% PMHR: NA 100% PMHR: NA METS: NA Technologist Comment: Stress Test Results/Findings: Presenting cardio lyte stress test Mr. Byrd is 60 beats a minute, Baseline blood pressure 150/103 mmHg Baseline 12-lead ECG shows sinus rhythm with nonspecific ST-T abnormalities Patient received Persantine infusion per protocol. No significant change in heart rate and blood pressure No significant changes on twelve-lead EKG She was quite nauseous at the end and required reversal with Aminophyllin Nuclear portion be reported separately
--- NOTE | 2018-10-15 11:36 | P.PN ---
Subjective Patient had a Persantine stress this am. Complains of of exacerbation of migraine headache. Stated she had chest pressure relieved with reversal of Persantine. Discussed of hyperlipidemia patient will reorder meds. Awaiting results from stress test if negative patient will be discharged Objective - Vital Signs Vital signs: Vital Signs Temp 98.3 F 10/15/18 07:46 Pulse 61 10/15/18 07:46 Resp 18 10/15/18 07:46 BP 131/76 10/15/18 07:46 Pulse Ox 97 10/15/18 07:46 Intake & Output 10/14/18 10/15/18 10/15/18 18:59 06:59 18:59 Intake Total 480 690 Balance 480 690 Weight 73.8 kg Intake: Intake, IV Titration 450 Amount Sodium Chloride 0.9% 1, 450 000 ml @ 75 mls/hr IV . [id number] ELIO Rx#:[id number] Oral 480 240 Other: Voiding Method Toilet Toilet Toilet # Voids 2 4 2 - Constitutional General appearance: Present: mild distress - EENT Eyes: Present: PERRLA Ears: bilateral: normal - Neck Neck: Present: normal ROM - Respiratory Respiratory: bilateral: CTA - Cardiovascular Rhythm: regular - Gastrointestinal General gastrointestinal: Present: soft - Integumentary Integumentary: Present: normal - Neurologic Neurologic: Present: CNII-XII intact - Psychiatric Psychiatric: Present: A&O x's 3, appropriate affect, intact judgment & insight - Labs CBC & Chem 7: 10/13/18 12:59 10/13/18 12:59 Assessment and Plan Plan: Assessment Chest pain troponin negative 3 GERD with nausea and diarrhea Hyperlipidemia Hypertension Hypothyroidism Migraine seeing Dr. Conti IBS GERD sees Dr. Cerna History of cervical cancer History of pancreatitis Plan Continue consultation with cardiology will be discharged if stress test negative
--- NOTE | 2018-10-15 11:48 | NM ---
EXAMINATION TYPE: NM stress persantine cardiolit DATE OF EXAM: 10/15/2018 COMPARISON: NONE HISTORY: Chest pain TECHNIQUE: After the intravenous administration of 10.6 mCi Tc 99m Sestamibi - Cardiolite resting SP ECT images acquired 45 minutes post injection. The patient received 42.1 mg Persantine. 100 mg Aminophyllin was utilized. 25.4 mCi Tc 99m Sestamibi - Stress images obtained 30 minutes post injection FINDINGS: Some very subtle diminished radiotracer accumulation at the cardiac apex may be present on stress darcy ges which appears reversible on the resting images. This is best visualized on the SPECT imaging. Marito ar map under call this finding. Gated wall motion is unremarkable. Ejection fraction of 55% is normal. IMPRESSION: 1. Possible very minimal stress-induced ischemic change the cardiac apex. 2. Remainder of the stress myocardial study appears unremarkable.
--- NOTE | 2018-10-15 12:10 | P.PN ---
Progress Note - Text Progress Note Date: 10/15/18 This is a pleasant 63-year-old female patient with hypertension, dyslipidemia not on any treatment because of statin intolerance, as well as history of smoking, and significant family history of coronary artery disease with her father, presented to the emergency room complaining of chest discomfort. For the last few days, she has been experiencing intermittent episodes of chest discomfort. The discomfort is mainly in the mid of the chest, as a shooting kind of discomfort, with radiation to the left shoulder and left arm, and with associated symptoms of sweating. The chest discomfort is of variable duration. No dizziness or lightheadedness, heart racing or fluttering, or syncope. In term of workup, the EKG showed sinus rhythm without any significant ST or T-wave abnormalities concerning for ischemia. 3 sets of cardiac enzymes were checked and came in to be unremarkable. The patient underwent myocardial perfusion imaging stress test and that revealed stress-induced ischemia in the apex of the LV. I did recommend proceeding with heart catheterization to rule out severe coronar y artery disease.
[2018-10-15] MEDS: BACLOFEN 10 MG TAB PO SCH (21:31)
[2018-10-16] MEDS: SODIUM CHLORIDE 0.9% 1,000 ML IV SCH ×2 (05:00→16:28)
[2018-10-16] MEDS: NITROGLYCERIN OINT 1 INCH/GM PACKET TOPICAL SCH ×3 (05:01→16:28)
[2018-10-16] MEDS: PANTOPRAZOLE 40 MG TABLET PO SCH ×2 (06:03→16:56)
[2018-10-16] MEDS: LEVOTHYROXINE 25 MCG TAB PO SCH (06:03)
[2018-10-16] MEDS: ALPRAZolam 1 MG TAB PO PRN ×2 (06:07→12:40)
[2018-10-16 06:31] LABS: Basophils # (A) 0.1 k/uL (0-0.2); Basophils % (A) 1 %; Eosinophils # (A) 0.2 k/uL (0-0.7); Eosinophils % (A) 3 %; HCT 43.1 % (34.0-46.0); HGB 13.9 gm/dL (11.4-16.0); Lymphocytes # (A) 2.2 k/uL (1.0-4.8); Lymphocytes % (A) 33 %; MCH 29.9 pg (25.0-35.0); MCHC 32.4 g/dL (31.0-37.0); MCV 92.3 fL (80.0-100.0); Mean Platelet Volume 6.9; Monocytes # (A) 0.3 k/uL (0-1.0); Monocytes % (A) 5 %; Neutrophils # (A) 3.7 k/uL (1.3-7.7); Neutrophils % (A) 57 %; Platelet Count 324 k/uL (150-450); RBC 4.67 m/uL (3.80-5.40); RDW 15.1 % (11.5-15.5); WBC 6.5 k/uL (3.8-10.6)
[2018-10-16 06:40] LABS: ALT 23 U/L (9-52); AST 23 U/L (14-36); African American GFR (CKD) >90 (>60 ml/min/1.73 sqM); Albumin 3.8 g/dL (3.5-5.0); Alkaline Phosphatase 56 U/L (38-126); Anion Gap 4 mmol/L; Blood Urea Nitrogen 14 mg/dL (7-17); Calcium 9.2 mg/dL (8.4-10.2); Carbon Dioxide 29 mmol/L (22-30); Chloride 107 mmol/L (98-107); Glucose 100 mg/dL (74-99); Sodium 140 mmol/L (137-145); Total Bilirubin 0.5 mg/dL (0.2-1.3); Total Protein 6.3 g/dL (6.3-8.2)
[2018-10-16] MEDS: SYMBICORT 160-4.5 MCG INHALER INHALATION SCH (07:16)
[2018-10-16] MEDS: CITALOPRAM HYDROBROMIDE 20 MG TAB PO SCH (08:00)
[2018-10-16] MEDS: ASPIRIN 325 MG TAB PO SCH (08:00)
[2018-10-16] MEDS: LISINOPRIL-HCTZ 10-12.5 MG 1 EACH TAB PO SCH (08:01)
[2018-10-16] MEDS: BUTALB/APAP/CAFF 50-325-40MG TAB PO PRN ×2 (08:41→16:56)
[2018-10-16] MEDS ORDERED: ALPRAZolam 0.25 MG TAB PO PRN (09:04)
[2018-10-16] MEDS ORDERED: ASPIRIN 325 MG TAB PO STA (09:04)
[2018-10-16] MEDS ORDERED: SODIUM CHLORIDE 0.9% 1,000 ML in EMPTY BAG 1 BAG IV ONE (09:04)
[2018-10-16] MEDS ORDERED: ALPRAZolam 0.5 MG TAB PO PRN (09:04)
[2018-10-16] MEDS ORDERED: NITROGLYCERIN SL TABS 0.4 MG TAB SUBLINGUAL PRN (09:04)
[2018-10-16] MEDS: ATORVASTATIN 80 MG TAB PO STA ×2 (11:02→11:04)
--- NOTE | 2018-10-16 11:06 | P.PN ---
Subjective Patient a positive stress test yesterday showing some ischemic to the apex. Scheduled for cardiac cath today. Nurse called stating the patient was complaining of headache Fioricet ordered headache under control at this time Objective - Vital Signs Vital signs: Vital Signs Temp 98.6 F 10/16/18 03:20 Pulse 66 10/16/18 03:20 Resp 16 10/16/18 03:20 BP 120/70 10/16/18 03:20 Pulse Ox 96 10/16/18 03:20 Intake & Output 10/15/18 10/16/18 10/16/18 18:59 06:59 18:59 Intake Total 600 Balance 600 Weight 74.1 kg Intake: Oral 600 Other: Voiding Method Toilet Toilet # Voids 2 1 2 - Constitutional General appearance: Present: mild distress - EENT Eyes: Present: PERRLA Ears: bilateral: normal - Neck Neck: Present: normal ROM - Respiratory Respiratory: bilateral: CTA - Cardiovascular Rhythm: regular - Gastrointestinal General gastrointestinal: Present: soft - Integumentary Integumentary: Present: normal - Neurologic Neurologic: Present: CNII-XII intact - Psychiatric Psychiatric: Present: A&O x's 3, appropriate affect, intact judgment & insight - Labs CBC & Chem 7: 10/16/18 05:44 10/16/18 05:44 Labs: Abnormal Lab Results - Last 24 Hours (Table) 10/16/18 Range/Units 05:44 Glucose 100 H (74-99) mg/dL - Imaging and Cardiology Positive stress test with ischemia noted to the apex Assessment and Plan Plan: Assessment Chest pain stress test positive for ischemia troponins negative 3 History of hyperlipidemia Hypertension Hypothyroidism Migraine GERD/IBS seeing Dr. Cerna cervical cancer History of pancreatitis Plan Cardiac cath today
[2018-10-16 11:07] VITALS: RESP 20; TEMP 98.2
[2018-10-16 11:22] LABS: Glucose,Whole Blood 86 mg/dL (75-99)
[2018-10-16] MEDS ORDERED: MIDAZOLAM (PF) 2 MG/2 ML VIAL IVP ONE (11:35)
[2018-10-16] MEDS ORDERED: LIDOCAINE 1% INJ 10MG/ML (20 ML MDV) SQ ONE (11:38)
[2018-10-16] MEDS ORDERED: VERAPAMIL SYRINGE (5 MG/10 ML) INTRAARTER ONE ×2 (11:40→11:49)
[2018-10-16] MEDS ORDERED: HEPARIN SODIUM 1,000 UN/ML (10ML VL) IV ONE (11:42)
[2018-10-16] MEDS ORDERED: HYDROmorphone 1 MG/ML 1 ML SYRINGE IVP ONE (11:44)
[2018-10-16] MEDS ORDERED: IOPAMIDOL-370 125ML BTL INJ ONE (11:49)
[2018-10-16] MEDS ORDERED: IV FLUID CONTINUATION 1,000 ML IV ONE (11:49)
[2018-10-16] MEDS ORDERED: RX INFO: IV CONTRAST WAS GIVEN 1 EACH MISC MISCELLANE PRN (11:54)
[2018-10-16] MEDS ORDERED: SODIUM CHLORIDE 0.9% 1,000 ML IV SCH (12:00)
--- NOTE | 2018-10-16 12:24 | CC ---
CARDIAC CATHETERIZATION REPORT DATE OF SERVICE: October 16, 2018 PERFORMING PHYSICIAN: Sin Maciel MD, lockstitch coat joiner. PROCEDURE PERFORMED: 1. Selective right and left coronary angiogram. 2. Left heart catheterization. INDICATION: This is a 63-year-old female patient with hypertension and dyslipidemia who is intolerant to statin, presented to the hospital with chest discomfort, ruled out for acute non ST elevation myocardial infarction. She underwent myocardial perfusion imaging stress test and that revealed reversible defect involving the apex of the left ventricle. Because of that, a heart catheterization was advised. APPROACH: Right radial artery. COMPLICATION: None. LEVEL OF SEDATION: Moderate with sedation length of 13 minutes. PROCEDURE DESCRIPTION: After obtaining an informed consent, the patient was brought to the cardiac label folder. The right radial artery was cannulated using micropuncture technique, the micropuncture wire passed easily then I placed a 5-Upper Sorbian sheath. I did give the patient 2 mg of verapamil IA and 6000 units of heparin IV. I did perform selective right and left coronary angiogram with JR4 and JL3.5 catheters. Left heart catheterization was performed using pigtail catheter. The procedure was completed without any complication. SELECTIVE CORONARY ANGIOGRAM: 1. The right coronary artery is a large caliber vessel and it is a dominant vessel. The RCA is calcified with mild disease only. Distally bifurcates into PDA and PLV branches both appeared to be angiographically normal. 2. The left main is angiographically normal. It is a long left main. It bifurcates into left circumflex and left anterior descending artery as well as ramus intermedius. The left main has mild disease only. 3. The left circumflex is a medium caliber vessel. It is a nondominant vessel and appeared to be angiographically normal. 4. The ramus intermedius is a large caliber vessel and seems to be angiographically normal as well. 5. The LAD: The LAD is calcified in the proximal portion with mild disease only. It gives rise into the first diagonal branch which is small caliber vessel, seems to be angiographically normal. HEMODYNAMICS: The left ventricular end-diastolic pressure was 10 mmHg without significant gradient across the aortic valve. CONCLUSION: 1. Calcified right and left coronary system. 2. Mild nonobstructive coronary artery disease. POSTPROCEDURE MANAGEMENT: 1. Maximize medical treatment. 2. Aggressive cholesterol control. 3. Follow up with the patient. MMODL / IJN: [id number] /
--- NOTE | 2018-10-16 15:32 | P.DS ---
Providers Date of admission: 10/14/18 11:15 Expected date of discharge: 10/16/18 Attending physician: Tonny Shipley Consults: 10/13/18 15:18 Consult Physician Urgent Consulting Provider: [facility] Consult Reason/Comments: Chest pain Do you want consulting provider notified?: Yes Primary care physician: Tonny Shipley [facility] Course: 63-year-old female is a emergency room with complaints of chest pain nausea vomiting diarrhea. States she's had the vomiting and diarrhea for five days intermittent chest pressure. Patient was evaluated by cardiology. Had positive stress test was then given a cardiac catheterization and found to have mild not obstructing coronary artery disease. Patient will follow up with cardiology for hyperlipidemia treatment. Patient was having difficulty with migraine and was treated for the same. Assessment chest pain mild not obstructing coronary disease negative troponins history of GERD history of vomiting and diarrhea history of hyperlipidemia hypertension hypothyroidism migraine being treated by Dr. Conti history of IBS seeing Dr. Cerna history of cervical cancer history pancreatitis Plan follow up with cardiology for hyperlipidemia treatment follow up with family physician Dr. Tonny Shipley Patient Condition at Discharge: Stable Plan - Discharge Summary New Discharge Prescriptions: New Aspirin 325 mg PO DAILY tab Nitroglycerin Sl Tabs [Nitrostat] 0.4 mg SUBLINGUAL Q5M PRN #25 tab PRN Reason: Chest Pain Budesonide-Formot 160-4.5 Mcg [Symbicort 160-4.5 Mcg Inhaler] 2 puff INHALATION RT-BID puff Acetaminophen Tab [Tylenol] 650 mg PO Q6HR PRN tab PRN Reason: Mild Pain Or Fever > 100.5 Albuterol Nebulized [Ventolin Nebulized] 2.5 mg INHALATION RT-QID PRN nebu PRN Reason: Shortness Of Breath Or Wheezing Continue Levothyroxine Sodium [Synthroid] 25 mcg PO DAILY ALPRAZolam [Xanax] 1 mg PO TID PRN PRN Reason: Anxiety Lisinopril-Hctz 10-12.5 mg [Zestoretic 10-12.5] 1 tab PO DAILY Pantoprazole [Protonix] 40 mg PO BID Citalopram Hydrobromide [Citalopram HBr] 40 mg PO DAILY Baclofen [Lioresal] 20 mg PO HS Discharge Medication List ALPRAZolam [Xanax] 1 mg PO TID PRN 05/27/15 [History] Levothyroxine Sodium [Synthroid] 25 mcg PO DAILY 05/27/15 [History] Lisinopril-Hctz 10-12.5 mg [Zestoretic 10-12.5] 1 tab PO DAILY 05/27/15 [History] Citalopram Hydrobromide [Citalopram HBr] 40 mg PO DAILY 01/10/18 [History] Pantoprazole [Protonix] 40 mg PO BID 01/10/18 [History] Baclofen [Lioresal] 20 mg PO HS 10/13/18 [History] Acetaminophen Tab [Tylenol] 650 mg PO Q6HR PRN tab 10/16/18 [Rx] Albuterol Nebulized [Ventolin Nebulized] 2.5 mg INHALATION RT-QID PRN nebu 10/16/18 [Rx] Aspirin 325 mg PO DAILY tab 10/16/18 [Rx] Budesonide-Formot 160-4.5 Mcg [Symbicort 160-4.5 Mcg Inhaler] 2 puff INHALATION RT-BID puff 10/16/18 [Rx] Nitroglycerin Sl Tabs [Nitrostat] 0.4 mg SUBLINGUAL Q5M PRN #25 tab 10/16/18 [Rx] Follow up Appointment(s)/Referral(s): Tonny Shipley MD [Primary Care Provider] - 1-2 days
[2018-10-16 16:31] VITALS: BP 149/75; PULSE 50
== END 2018-10-16 18:12 | disposition home or self-care (01) | DRG 287 ==
LOC: EC 12:43 → 3SCARD 15:18 → OBSVTOIN 10-14 11:15
PROVIDERS: ADMIT Family Medicine; ATTEND Family Medicine
PROC: B2111ZZ Fluoroscopy of Multiple Coronary Arteries using Low Osmolar Contrast (ICD-10-PCS; 2018-10-16)
PROC: 4A023N7 Measurement of Cardiac Sampling and Pressure, Left Heart, Percutaneous Approach (ICD-10-PCS; principal; 2018-10-16 10:25)
DX: R07.9 Chest pain, unspecified (principal); G43.109 Migraine with aura, not intractable, without status migrainosus; I10 Essential (primary) hypertension; I25.10 Atherosclerotic heart disease of native coronary artery without angina pectoris; K21.9 Gastro-esophageal reflux disease without esophagitis; F41.9 Anxiety disorder, unspecified; E03.9 Hypothyroidism, unspecified; E78.00 Pure hypercholesterolemia, unspecified; E78.5 Hyperlipidemia, unspecified; F32.9 Major depressive disorder, single episode, unspecified; R11.2 Nausea with vomiting, unspecified; K58.0 Irritable bowel syndrome with diarrhea; Z79.890 Hormone replacement therapy; Z79.899 Other long term (current) drug therapy; Z90.710 Acquired absence of both cervix and uterus; Z87.891 Personal history of nicotine dependence; Z85.41 Personal history of malignant neoplasm of cervix uteri; Z88.2 Allergy status to sulfonamides; Z90.49 Acquired absence of other specified parts of digestive tract; Z80.1 Family history of malignant neoplasm of trachea, bronchus and lung; Z82.49 Family history of ischemic heart disease and other diseases of the circulatory system
CPT/HCPCS: 36415; 70450; 71046; 78452; 80053; 80061; 82150; 83690; 83735; 84484; 85025; 85610; 85730; 93005; 93017; 93306; 93458; 94640; 94760; 96361; 96374; 96375; 99285

== ENCOUNTER → 2018-10-22 | Outpatient (CLI) | payer MEDICARE, OTHER ==
--- NOTE | 2018-10-22 14:07 | MR ---
EXAMINATION TYPE: MR cervical spine wo/w con DATE OF EXAM: 10/22/2018 COMPARISON: MRI of the cervical spine dated 12/27/2015 HISTORY: Cervical Myelopathy TECHNIQUE: Multiplanar, multisequence images of the cervical spine were acquired utilizing 7.5 mL intravenous Ga davist gadolinium contrast. Diffusion weighted imaging was performed. FINDINGS: There is redemonstration of anterior cervical fusion of C5-C6. There is straightening of th e upper cervical lordosis. Vertebral body heights and overall alignment are maintained. Small posteri or projecting disc osteophyte complex at C4-C5. No abnormal prevertebral soft tissue swelling. Cerebe llar tonsils are low-lying without herniation. C2-C3: There is disc desiccation and a small broad-based disc bulge without spinal canal stenosis nor neural foraminal narrowing. C3-C4: There is a very small central disc osteophyte complex and minimal uncovertebral hypertrophy. T here is narrowing of the ventral subarachnoid space without significant spinal canal stenosis nor sherrell ral foraminal narrowing. C4-C5: There is a posterior disc osteophyte complex and central disc herniation as well as uncoverteb ral hypertrophy and facet arthropathy contributing to moderate left and [id number] right neural foraminal narrowing and mild spinal canal stenosis. C5-C6: Postoperative changes of an anterior cervical fusion is seen. There is redemonstration of abno rmal spinal cord signal at C5-C6 and volume loss of the spinal cord compatible with myelomalacia. The re remains uncovertebral hypertrophy moderately narrowing the left neural foramen and mildly narrowin g the right neural foramen. No spinal canal stenosis.. C6-C7: Uncovertebral hypertrophy and facet arthropathy moderately narrow the left neural foramen and mildly narrow the right neural foramen. Broad-based disc bulge minimally narrows the ventral subarach noid space without spinal canal stenosis. C7-T1: There is a central disc herniation without spinal canal stenosis nor neural foraminal narrowin g. There is no abnormal enhancement of the spinal cord nor cervical spine. IMPRESSION: 1. New central disc herniations at C4-C5 and C7-T1 without spinal canal stenosis. 2. Postoperative change at C5-C6 with redemonstration of focal myelomalacia at this level. No abnorma l enhancement to suggest epidural fibrosis or enhancing spinal cord lesion. 3. Moderate multilevel degenerative disc disease creating variable degrees of neural foraminal narrow ing as detailed above, slightly worsened from the prior 2016.
== END | disposition home or self-care (01) ==
LOC: RADMRIMAIN 12:42
PROVIDERS: ATTEND Psychiatry & Neurology Neurology
DX: M50.221 Other cervical disc displacement at C4-C5 level (principal); M50.30 Other cervical disc degeneration, unspecified cervical region; M48.02 Spinal stenosis, cervical region
CPT/HCPCS: 72156; A9585

== ENCOUNTER 2020-02-02 16:10 | Emergency (ER) | payer MEDICARE, OTHER ==
[2020-02-02 16:29] VITALS: TEMP 97.5
--- NOTE | 2020-02-02 16:44 | ED ---
General Adult HPI - General Chief complaint: Shortness of Breath Stated complaint: SOB Time Seen by Provider: 02/02/20 16:25 Source: patient, RN notes reviewed, old records reviewed Mode of arrival: wheelchair Limitations: no limitations - History of Present Illness Initial comments: This is a 64-year-old female who presents emergency department with past medical history significant for COPD. Patient states she was exposed to COVID by her granddaughter who lives with her. Patient states over the last few days she has had some diarrhea and more shortness of breath as well as feeling overall fatigued. Patient states she also has lost her sense of taste. Patient denies any fever chills per patient denies any abdominal pain patient denies any vo miting diarrhea. Patient denies any headache patient denies lightheadedness dizziness or near syncopal episode. - Related Data Home Medications Medication Instructions Recorded Confirmed ALPRAZolam [Xanax] 1 mg PO TID PRN 05/27/15 10/13/18 Levothyroxine Sodium [Synthroid] 25 mcg PO DAILY 05/27/15 10/13/18 Lisinopril-Hctz 10-12.5 mg 1 tab PO DAILY 05/27/15 10/13/18 [Zestoretic 10-12.5] Citalopram Hydrobromide 40 mg PO DAILY 01/10/18 10/13/18 [Citalopram HBr] Pantoprazole [Protonix] 40 mg PO BID 01/10/18 10/13/18 Baclofen [Lioresal] 20 mg PO HS 10/13/18 10/13/18 Previous Rx's Medication Instructions Recorded Acetaminophen Tab [Tylenol] 650 mg PO Q6HR PRN tab 10/16/18 Albuterol Nebulized [Ventolin 2.5 mg INHALATION RT-QID PRN nebu 10/16/18 Nebulized] Aspirin 325 mg PO DAILY tab 10/16/18 Budesonide-Formot 160-4.5 Mcg 2 puff INHALATION RT-BID puff 10/16/18 [Symbicort 160-4.5 Mcg Inhaler] Nitroglycerin Sl Tabs [Nitrostat] 0.4 mg SUBLINGUAL Q5M PRN #25 tab 10/16/18 predniSONE [Deltasone] 40 mg PO DAILY #8 tab 02/02/20 Allergies Allergy/AdvReac Type Severity Reaction Status Date / Time Sulfa (Sulfonamide Allergy Severe Anaphylaxis Verified 02/02/20 16:29 Antibiotics) Review of Systems ROS Statement: Those systems with pertinent positive or pertinent negative responses have been documented in the HPI. ROS Other: All systems not noted in ROS Statement are negative. Past Medical History Past Medical History: Cancer, Hyperlipidemia, Hypertension, Neurologic Disorder, Thyroid Disorder Additional Past Medical History / Comment(s): Hx. Migraines, Irritable bowel syndrome, cervical ca 1979 History of Any Multi-Drug Resistant Organisms: None Reported Past Surgical History: Breast Surgery, Cholecystectomy, Hysterectomy Additional Past Surgical History / Comment(s): Cervical fusion. EXPLORATORY LAP. BREAST IMPLANTS IN AND OUT, breast reduction 2003. COLONOSCOPY. EGD Past Anesthesia/Blood Transfusion Reactions: Previous Problems w/ Anesthesia Additional Past Anesthesia/Blood Transfusion Reaction / Comment(s): Wakes up slowly Past Psychological History: Anxiety, Depression Smoking Status: Former smoker Past Alcohol Use History: Occasional Past Drug Use History: Marijuana - Past Family History Father History Unknown: Yes Family Medical History: No Reported History Additional Family Medical History / Comment(s): of heart disease in his 60's Mother Family Medical History: Cancer Additional Family Medical History / Comment(s): of lung cancer General Exam - General Exam Comments Initial Comments: GENERAL: Patient is well-developed and well-nourished. Patient is nontoxic and well- hydrated and is in mild distress. ENT: Neck is soft and supple. No significant lymphadenopathy is noted. Oropharynx is clear. Moist mucous membranes. Neck has full range of motion without eliciting any pain. EYES: The sclera were anicteric and conjunctiva were pink and moist. Extraocular movements were intact and pupils were equal round and reactive to light. Eyelids were unremarkable. PULMONARY: Unlabored respirations. Good breath sounds bilaterally. She has a slight expiratory wheeze CARDIOVASCULAR: There is a regular rate and rhythm without any murmurs gallops or rubs. ABDOMEN: Soft and nontender with normal bowel sounds. SKIN: Skin is clear with no lesions or rashes and otherwise unremarkable. NEUROLOGIC: Patient is alert and oriented x3. Cranial nerves II through XII are grossly intact. Motor and sensory are also intact. Normal speech, volume and content. Symmetrical smile. MUSCULOSKELETAL: Normal extremities with adequate strength and full range of motion. LYMPHATICS: No significant lymphadenopathy is noted PSYCHIATRIC: Normal psychiatric evaluation. Limitations: no limitations Course Vital Signs 02/02/20 02/02/20 02/02/20 16:24 18:28 18:30 Temperature 97.5 F L Pulse Rate 88 85 87 Respiratory 22 16 16 Rate Blood Pressure 148/100 131/94 O2 Sat by Pulse 98 95 Oximetry 02/02/20 18:37 Temperature Pulse Rate 88 Respiratory 16 Rate Blood Pressure O2 Sat by Pulse Oximetry Medical Decision Making - Medical Decision Making Chest x-ray shows no acute abnormality. Patient received a breathing treatment emergency department as well as steroids. After that she was feeling much better she wanted to be discharged home. Patient follow-up with the primary medical care doctor. - Lab Data Lab Results 02/02/20 Range/Units 16:52 Coronavirus (PCR) Not Detected (Not Detectd) Disposition Clinical Impression: Acute exacerbation of chronic obstructive pulmonary disease Disposition: HOME SELF-CARE Condition: Good Instructions (If sedation given, give patient instructions): COPD (Chronic Obstructive Pulmonary Disease) (ED) Prescriptions: predniSONE [Deltasone] 40 mg PO DAILY #8 tab Is patient prescribed a controlled substance at d/c from ED?: No Referrals: Tonny Shipley MD [Primary Care Provider] - 1-2 days Time of Disposition: 18:40
--- NOTE | 2020-02-02 17:17 | XR ---
EXAMINATION TYPE: XR chest 1V portable DATE OF EXAM: 02/02/2020 COMPARISON: November 11, 2019 HISTORY: COPD. Short of breath. TECHNIQUE: FINDINGS: There is no heart failure nor confluent pneumonic infiltrate. Costophrenic angles are clear . There are no hilar masses. Bony thorax is intact. There are chest leads. IMPRESSION: No active cardiac pulmonary disease. No change.
[2020-02-02] MEDS ORDERED: IPRATROPIUM-ALBUTEROL 3 ML NEB INHALATION STA (17:50)
[2020-02-02] MEDS ORDERED: methylPREDNISolone SOD SUCCI 125 MG/2 ML VIAL IM ONE (17:50)
[2020-02-02 18:29] VITALS: BP 131/94; RESP 16
[2020-02-02 18:38] VITALS: PULSE 88
== END 2020-02-02 18:54 | disposition home or self-care (01) ==
LOC: EC 16:10
DX: J44.1 Chronic obstructive pulmonary disease with (acute) exacerbation (principal); I10 Essential (primary) hypertension; E07.9 Disorder of thyroid, unspecified; F41.9 Anxiety disorder, unspecified; F32.9 Major depressive disorder, single episode, unspecified; Z79.899 Other long term (current) drug therapy; Z79.890 Hormone replacement therapy; Z88.2 Allergy status to sulfonamides; Z87.891 Personal history of nicotine dependence; Z90.49 Acquired absence of other specified parts of digestive tract; Z85.41 Personal history of malignant neoplasm of cervix uteri; Z20.828 Contact with and (suspected) exposure to other viral communicable diseases
CPT/HCPCS: 94640; 93005; 87635; 71045; 99285; 96372; J2930

== ENCOUNTER → 2020-09-17 | Outpatient (CLI) | payer MEDICARE, OTHER | END | disposition home or self-care (01) | DX: R10.13 Epigastric pain (principal) ==

== ENCOUNTER → 2020-09-23 | Outpatient (CLI) | payer MEDICARE, OTHER ==
--- NOTE | 2020-09-23 14:58 | CT ---
EXAMINATION TYPE: CT abdomen pelvis w con DATE OF EXAM: 09/23/2020 COMPARISON: 03/01/2017 HISTORY: RUQ pain getting worse. CT DLP: 1005.1 mGycm Automated exposure control for dose reduction was used. CONTRAST: CT scan of the abdomen pelvis is performed with IV Contrast, patient injected with 100 mL of Isovue 3 00. FINDINGS- LUNG BASES- No significant abnormality is appreciated. Coronary artery calcification noted. LIVER/GB-findings compatible with the low attenuation liver and hepatic steatosis. There are at least 2 hypodensities within the liver which are similar in size to the prior exam and therefore likely be nign. The largest measures approximately 18 Hounsfield units and does not meet the criteria of a simp le cyst. Additional tiny hypodensities near the dome of the liver medially are also stable. Postchole cystectomy. PANCREAS- No gross abnormality is seen. SPLEEN- No gross abnormality is seen. ADRENALS- No gross abnormality is seen. KIDNEYS/BLADDER-no hydronephrosis. Tiny hypodensities involving the kidneys are too small to characte rize but statistically most likely related to cysts.. BOWEL-bowel gas pattern nonspecific. Findings of diverticulosis noted. Correlate for previous hystere ctomy. Soft tissue nodules in the adnexal regions likely related to residual ovaries and stable from prior exam.. LYMPH NODES- No greater than 1cm abdominal or pelvic lymph nodes areappreciated. OSSEOUS STRUCTURES-hypertrophic and degenerative changes of the spine.. OTHER- atherosclerotic change of the aorta with no evidence of aneurysm. IMPRESSION- 1. Postcholecystectomy changes correlate for mild hepatic steatosis. Low density findings involving t he liver are stable relative to the previous exam and although do not meet the criteria simple cysts are likely benign given their stability. Correlation with MRI could BE obtained as clinically warrant ed. 2. Additionally there is a hyperdense lesion in the right lobe of the liver most likely in the basis of a flash hemangioma measuring 1.2 cm retrospectively stable from prior exam. 3. Diverticulosis with no CT evidence of diverticulitis.
== END | disposition home or self-care (01) ==
LOC: RADCTMAIN 11:08
PROVIDERS: ATTEND Internal Medicine Gastroenterology
DX: K76.9 Liver disease, unspecified (principal); K57.30 Diverticulosis of large intestine without perforation or abscess without bleeding; Z90.49 Acquired absence of other specified parts of digestive tract
CPT/HCPCS: 74177; Q9967

== ENCOUNTER → 2020-10-10 | Outpatient (CLI) | payer MEDICARE, OTHER ==
--- NOTE | 2020-10-17 10:19 | MM ---
Reason for exam: screening (asymptomatic). Last mammogram was performed 1 year ago. History: Patient is postmenopausal and has history of other cancer at age 24. Benign US biopsy breast VAD LT of the left breast, January 22, 2018. Implant Removal of both breasts, 2004. Reductions of both breasts, 2003. Implant Removal of both breasts, 2001. Saline implants in both breasts, July 13, 1994. Saline implants in both breasts, July 13, 1984. Pre-pectoral silicone gel implants in both breasts, July 13, 1974. Took hormonal contraceptives for 15 years beginning at age 15. Took estrogen for 6 months beginning at age 44. Physical Findings: A clinical breast exam by your physician is recommended on an annual basis and results should be correlated with mammographic findings. MG 3D Screening Mammo W/Cad Bilateral CC and MLO view(s) were taken. Prior study comparison: October 06, 2019, bilateral MG 3d diag mammo w/cad [facility]. January 22, 2018, left breast MG diagnostic mammo LT wo CAD. January 07, 2018, bilateral MG 3d diag mammo w/cad [facility]. July 11, 2016, bilateral MG 3d screening mammo w/cad. There are scattered fibroglandular densities. Previous mammotome biopsy in the left breast. There is chronic nodularity in the left breast. No significant changes when compared with prior studies. ASSESSMENT: Negative, BI-RAD 1 RECOMMENDATION: Routine screening mammogram of both breasts in 1 year.
== END | disposition home or self-care (01) ==
LOC: RADMAMWWP 13:24
PROVIDERS: ATTEND Family Medicine
DX: Z12.31 Encounter for screening mammogram for malignant neoplasm of breast (principal); Z85.9 Personal history of malignant neoplasm, unspecified; Z78.0 Asymptomatic menopausal state; Z79.3 Long term (current) use of hormonal contraceptives
CPT/HCPCS: 77063; 77067

== ENCOUNTER 2021-08-25 06:48 | Day surgery (SDC) | payer MEDICARE, OTHER ==
[2021-08-23 11:45] VITALS: BMI 28.0
[~2021-08-25 06:48] MED LIST changes: -GLYCOPYRROLATE 0.2 MG/ML 2 ML VIAL ONE; -LACTATED RINGERS 1,000 ML IV SCH; +LIDOCAINE 1% (10MG/ML) FOR IV START INTRADERMA PRN; -LIDOCAINE 1% 20 ML VIAL (10MG/ML) FOR IV START INTRADERMA PRN; -LIDOCAINE 1% INJ 10MG/ML (20 ML MDV) ONE; -PROPOFOL 10 MG/ML 20 ML VIAL IV ONE
[2021-08-25 07:15] VITALS: TEMP 97.5
[2021-08-25] MEDS: LACTATED RINGERS 1,000 ML IV SCH ×2 (07:18→08:11)
[2021-08-25] MEDS ORDERED: LIDOCAINE 2% INJ 20 MG/ML (2 ML VIAL) ONE (08:12)
[2021-08-25] MEDS ORDERED: PROPOFOL 10 MG/ML 20 ML VIAL IV ONE (08:12)
--- NOTE | 2021-08-25 08:39 | P.PCN ---
Date of Procedure: 08/25/21 Procedure(s) Performed: Brief history: Patient is a [id number] white female scheduled for an elective upper endoscopy as well as colonoscopy as a part of evaluation of epigastric pain/history of GERD and screening for colon cancer Procedure performed: Esophagogastroduodenoscopywith biopsy Colonoscopy Preoperative diagnosis: GERD Epigastric pain Screening for colon cancer Anesthesia: MAC Procedure: After informed consent was obtained from the patient was brought into the endoscopy unit and IV sedation was administered by anesthesia under continuous monitoring. Initially upper endoscopy was done. The Olympus GF 160 video endoscope was inserted inserted into the mouth and esophagus intubated without any difficulty and was gradually advanced into the stomach and duodenum and carefully examined. The bulb and second part of the duodenum appeared normal. The scope was then withdrawn into the stomach adequately insufflated with air and upon careful examination the antrum had mild antral gastritis and biopsies were done from this area. The body, cardia and fundus appeared normal. The scope was then withdrawn into the esophagus. The GE junction was located at 40 cm to the incisors. small sliding type hiatal hernia noted. It appeared regular with no erythema erosions or ulcerations. Rest of the esophagus appeared normal. Patient tolerated the procedure well. At this time the patient continued to remain sedation. Initial digital rectal examination was normal. Olympus CF 160 video colonoscope was then inserted into the rectum and gradually advanced to the cecum without any difficulty. Careful examination was performed as the scope was gradually being withdrawn. The prep was excellent. The cecum, ascending colon, transverse colon, descending colon, sigmoid colon and rectum appeared normal. Retroflexion was performed in the rectum and no lesions were noted. scattered sigmoid diverticulosis.Patient tolerated the procedure well. Impression: 1.Upper endoscopy revealed mild antral gastritis but no evidence of colorectal neoplasiaand small hiatal hernia but no evidence of esophagitis or peptic ulcer disease 2.Colonoscopy revealed scattered sigmoid diverticulosiswith no evidence of colorectal neoplasia Recommendations: Findings of this examination were discussed with the patient as well migdalia family. She was advised to follow with the biopsy results. In the meantime continue with omeprazole 20 mg twice daily and follow antireflux measures. Repeat colonoscopy in 10 years.
[2021-08-25 08:56] VITALS: BP 126/74; PULSE 69; RESP 17
== END 2021-08-25 09:17 | disposition home or self-care (01) ==
LOC: ORWHC2ENDO 06:48
PROVIDERS: ATTEND Internal Medicine Gastroenterology
DX: Z12.11 Encounter for screening for malignant neoplasm of colon (principal); K29.50 Unspecified chronic gastritis without bleeding; K57.30 Diverticulosis of large intestine without perforation or abscess without bleeding; K21.9 Gastro-esophageal reflux disease without esophagitis; K44.9 Diaphragmatic hernia without obstruction or gangrene; I10 Essential (primary) hypertension; E78.5 Hyperlipidemia, unspecified; J44.9 Chronic obstructive pulmonary disease, unspecified; E03.9 Hypothyroidism, unspecified; M79.7 Fibromyalgia; Z88.2 Allergy status to sulfonamides; K58.9 Irritable bowel syndrome, unspecified; Z87.442 Personal history of urinary calculi; Z79.899 Other long term (current) drug therapy
CPT/HCPCS: 88305; 43239; J2704; J2001; G0121

== ENCOUNTER → 2022-02-13 | Outpatient (CLI) | payer MEDICARE, OTHER ==
--- NOTE | 2022-02-14 09:22 | MM ---
Reason for Exam: Screening (asymptomatic). Last mammogram was performed 1 year(s) and 4 month(s) ago. Patient History: Menarche at age 11. First Full-Term at age 18. Left ovary removed at age 24. Right ovary removed at age 24. Hysterectomy at age 24. Postmenopausal. Other cancer, age 24. Estrogen for 6 months starting at age 44. Hormonal Contraceptives for 15 years from age 15 until age 30. 2003, Bilateral Reduction. 01/22/2018, Benign Core Biopsy on the left side. 2004, Bilateral Implant Removal. 2001, Bilateral Implant Removal. 07/13/1994, Bilateral Implants. 07/13/1984, Bilateral Implants. 07/13/1974, Bilateral Implants. Risk Values: Ava 5 year model risk: 1.4%. NCI Lifetime model risk: 5.0%. Prior Study Comparison: 01/22/2018 Left Diagnostic Mammogram, [facility]. 10/06/2019 Bilateral Diagnostic Mammogram, [facility]. 10/10/2020 Bilateral Screening Mammogram, [facility]. Tissue Density: There are scattered fibroglandular densities. Findings: Analyzed By CAD. Stable mammotome biopsy clip in the left breast. Stable tiny round circumscribed mass in the right breast upper outer aspect. Benign-appearing right axillary lymph nodes are redemonstrated. Heterogeneous grouped calcifications towards the left axilla warrant follow-up. Finding could reflect artifact from deodorant is new from prior studies. Overall Assessment: Incomplete: need additional imaging evaluation, BI-RAD 0 Management: Diagnostic Mammogram of the left breast. Return for additional views including spot MLO, true lateral, and XCCL views. Electronically signed and approved by: Laurent Martin M.D.
== END | disposition home or self-care (01) ==
LOC: RADMAMWWP 14:59
PROVIDERS: ATTEND Family Medicine
DX: Z12.31 Encounter for screening mammogram for malignant neoplasm of breast (principal); Z78.0 Asymptomatic menopausal state; Z98.890 Other specified postprocedural states; Z98.82 Breast implant status
CPT/HCPCS: 77063; 77067

== ENCOUNTER → 2022-02-21 | Outpatient (CLI) | payer MEDICARE, OTHER ==
--- NOTE | 2022-02-21 10:55 | MM ---
Reason for Exam: Additional evaluation requested from abnormal screening. Last screening mammogram was performed less than 1 month ago. Patient History: Menarche at age 11. First Full-Term at age 18. Left ovary removed at age 24. Right ovary removed at age 24. Hysterectomy at age 24. Postmenopausal. Other cancer, age 24. Estrogen for 6 months starting at age 44. Hormonal Contraceptives for 15 years from age 15 until age 30. 2003, Bilateral Reduction. 01/22/2018, Benign Core Biopsy on the left side. 2004, Bilateral Implant Removal. 2001, Bilateral Implant Removal. 07/13/1994, Bilateral Implants. 07/13/1984, Bilateral Implants. 07/13/1974, Bilateral Implants. Risk Values: Ava 5 year model risk: 1.4%. NCI Lifetime model risk: 5.0%. Prior Study Comparison: 10/06/2019 Bilateral Diagnostic Mammogram, [facility]. 10/10/2020 Bilateral Screening Mammogram, [facility]. 02/13/2022 Bilateral MG 3D screening mammo w/cad, [facility]. Tissue Density: Left: There are scattered fibroglandular densities. Findings: Analyzed By CAD. Imaging is performed with attention to the axillary region for calcification. Repeating imaging was performed following re-washed of the area. Persistent suspicious clustered calcifications to correspond to the original mammogram are not identified. Faint calcification is not entirely excluded and close follow-up is recommended. A suspicious cluster of calcifications is not identified at this time. Overall Assessment: Probably benign, BI-RAD 3 Management: Diagnostic Mammogram of the left breast in 6 months. A clinical breast exam by your physician is recommended on an annual basis and results should be correlated with mammographic findings. This exam should not preclude additional follow-up of suspicious palpable abnormalities. Results were given to the patient verbally at the time of exam. Electronically signed and approved by: Meño Hays D.O. Radiologis
== END | disposition home or self-care (01) ==
LOC: RADMAMWWP 10:25
PROVIDERS: ATTEND Family Medicine
DX: R92.8 Other abnormal and inconclusive findings on diagnostic imaging of breast (principal); Z78.0 Asymptomatic menopausal state; Z90.721 Acquired absence of ovaries, unilateral
CPT/HCPCS: 77065; G0279; 77061

== ENCOUNTER → 2022-09-25 | Outpatient (CLI) | payer MEDICARE, OTHER ==
--- NOTE | 2022-09-25 10:31 | MM ---
Reason for Exam: Hx of breast augmentation, asymptomatic. Last screening mammogram was performed 7 month(s) ago. Patient History: Menarche at age 11. First Full-Term at age 18. Left ovary removed at age 24. Right ovary removed at age 24. Hysterectomy at age 24. Postmenopausal. Other cancer, age 24. Estrogen for 6 months starting at age 44. Hormonal Contraceptives for 15 years from age 15 until age 30. 2003, Bilateral Reduction. 01/22/2018, Benign Core Biopsy on the left side. 2004, Bilateral Implant Removal. 2001, Bilateral Implant Removal. 07/13/1994, Bilateral Implants. 07/13/1984, Bilateral Implants. 07/13/1974, Bilateral Implants. Risk Values: Ava 5 year model risk: 1.5%. NCI Lifetime model risk: 4.8%. Prior Study Comparison: 01/22/2018 Left Diagnostic Mammogram, [facility]. 10/06/2019 Bilateral Diagnostic Mammogram, [facility]. 10/10/2020 Bilateral Screening Mammogram, [facility]. 02/13/2022 Bilateral MG 3D screening mammo w/cad, [facility]. 02/21/2022 Left MG 3D work up w/cad LT, [facility]. Tissue Density: Left: There are scattered fibroglandular densities. Findings: Analyzed By CAD. Unchanged low axillary tail lymph node on the left. The previous grouped microcalcifications high in the axillary tail are no longer identified, most compatible with an-type or sprain. Microclip left breast from prior biopsy. No significant change from prior exams. Overall Assessment: Benign, BI-RAD 2 Management: Screening Mammogram of both breasts in 6 months. Results were given to the patient verbally at the time of exam. Patient should continue monthly self-breast exams. A clinical breast exam by your physician is recommended on an annual basis. This exam should not preclude additional follow-up of suspicious palpable abnormalities. Note on Ava scores and lifetime risk: 1. A Ava score greater than 3% is considered moderate risk. If this is the case, consider specialist referral to assess eligibility for a risk reducing agent. 2. If overall lifetime risk for the development of breast cancer is 20% or higher, the patient may qualify for future screening with alternating mammogram and breast MRI. Electronically signed and approved by: Christian Serrato M.D. Radiologist
== END | disposition home or self-care (01) ==
LOC: RADMAMWWP 09:33
PROVIDERS: ATTEND Family Medicine
DX: R92.8 Other abnormal and inconclusive findings on diagnostic imaging of breast (principal); Z78.0 Asymptomatic menopausal state
CPT/HCPCS: 77065; G0279; 77061

== ENCOUNTER → 2023-07-18 | Outpatient (CLI) | payer MEDICARE, OTHER ==
--- NOTE | 2023-07-18 16:38 | XR ---
EXAMINATION TYPE: XR chest 2V DATE OF EXAM: 07/18/2023 12:12 PM CLINICAL INDICATION:Female, 68 years old with history of CHRONIC OBSTRUCTIVE PULMONARY DISEASE W (ACU TE) EXACERBATION; COMPARISON: Chest radiographs from 02/02/2020 TECHNIQUE: XR chest 2V Frontal and lateral views of the chest. FINDINGS: Lungs/Pleura: There is flattening of the diaphragm with increased lucency of the lungs. No evidence o f pneumothorax, pleural effusion or focal consolidation. Pulmonary vascularity: Unremarkable. Heart/mediastinum: Cardiomediastinal silhouette is unremarkable. Musculoskeletal: No acute osseous pathology. IMPRESSION: 1. No acute cardiopulmonary disease process. 2. COPD changes.
== END | disposition home or self-care (01) ==
LOC: RADXRMAIN 11:39
PROVIDERS: ATTEND Family Medicine
DX: J44.1 Chronic obstructive pulmonary disease with (acute) exacerbation (principal)
CPT/HCPCS: 71046

== ENCOUNTER → 2024-01-09 | Outpatient (CLI) | payer MEDICARE, OTHER ==
[2024-01-09 16:31] LABS: INR 0.9 (<1.2); Partial Thromboplastin Time 25.7 sec (22.0-30.0); Prothrombin Time 10.2 sec (10.0-12.5)
[2024-01-09 19:41] LABS: HCT 43.4 % (37.2-46.3); MCHC 32.3 g/dL (32.0-37.0); MCV 86.8 FL (80.0-97.0); Mean Platelet Volume 8.7 FL (9.5-12.2); NRBC Per 100 WBC 0 X 10*3/uL (0.00-0.01); Platelet Count 372 X 10*3/uL (140-440); RDW 13.2 % (11.5-14.5); WBC 8.62 X 10*3/uL (4.50-10.00)
[2024-01-09 21:08] LABS: ALT 18 U/L (8-44); AST 26 U/L (13-35); Albumin 4.4 g/dL (3.8-4.9); Albumin/Globulin Ratio 1.83 Ratio (1.60-3.17); Alkaline Phosphatase 75 U/L (41-126); Blood Urea Nitrogen 19.8 mg/dL (9.0-27.0); Calcium 9.2 mg/dL (8.7-10.3); Carbon Dioxide 26.6 mmol/L (21.6-31.8); Chloride 98 mmol/L (96-109); Globulin 2.4 g/dL (1.6-3.3); Glucose 87 mg/dL (70-110); Potassium 4.1 mmol/L (3.5-5.5); Sodium 135 mmol/L (135-145); Total Bilirubin 0.2 mg/dL (0.3-1.2); Total Protein 6.8 g/dL (6.2-8.2)
== END | disposition home or self-care (01) ==
LOC: LABPAT 14:50
PROVIDERS: ATTEND Orthopaedic Surgery Sports Medicine
DX: Z01.812 Encounter for preprocedural laboratory examination (principal); M19.011 Primary osteoarthritis, right shoulder
CPT/HCPCS: 80053; 85027; 85610; 85730; 87070

== ENCOUNTER → 2024-01-24 | Outpatient (CLI) | payer MEDICARE, OTHER ==
[~2024-01-24] MED LIST changes: -LIDOCAINE 1% (10MG/ML) FOR IV START INTRADERMA PRN; +REGADENOSON 0.4 MG/5 ML SYRINGE IV PRN
--- NOTE | 2024-01-24 12:29 | CA ---
Lexiscan Nuclear Stress Test Report Name: Stacey Rivera Exam Date: 01/24/2024 09:40 Exam Location: [place] Stress Ht (in): 63 Wt (lb): 163 BSA: 1.77 Ordering Phys: Tonny Shipley MD Referring Phys: Quinten Technologist: Paul Holland Age: 68 Gender: F : 1955 Procedure CPT: Indications: R94.31 ABNORMAL ELECTROCARDIOGRAM [ECG] [EKG] ICD-10 Codes: Patient History: Abnormal EKG and presurgery Medications: Meds past 24 hrs: Pretest Chest Pain: STRESS TEST Lexiscan Protocol Exercise Duration (min:sec): 02:[address] Depressions (mm): Angina Score: Colmenares Score: Resting HR (bpm): 66 Peak HR (bpm): 90 Resting BP (mmHg): 114 / 80 Peak BP (mmHg): / 67 MPHR: 151 Target HR: 128 % MPHR: 60 METS: 1.0 Total Dose: Peak Dose: Atropine: Double Product: BP Response: Stress Termination: Infusion complete Stress Symptoms: Nausea that resoloved quickly Stress Summary: ECG ANALYSIS Resting ECG: Stress ECG: CONCLUSIONS Nondiagnostic stress test Dr. Sin Maciel MD (Electronically Signed) Final Date: 24 January 2024 12:28
--- NOTE | 2024-01-24 16:26 | NM ---
EXAMINATION TYPE: NM stress lexiscan cardiolite DATE OF EXAM: 01/24/2024 COMPARISON: Prior stress test the CLINICAL INDICATION: Female, 68 years old with history of R94.31 ABNORMAL ELECTROCARDIOGRAM [ECG] [EK G]; history of hypertension and hypercholesteremia. History of COPD. TECHNIQUE: After the intravenous administration of 7.9 mCi Tc 99m Sestamibi - Cardiolite resting SPE CT images acquired 60 minutes post injection. The patient received 0.4mg Lexiscan, 24.2 mCi Tc 99m Sestamibi - Stress images obtained [address] injection FINDINGS: Review of stress and rest SPECT images demonstrates more prominent area of diminished radiotracer upt geri on stress images versus rest images involving the apex seen best on horizontal and vertical long axis views suspicious for acute ischemia. Gated analysis shows overall estimated left ventricular ej ection fraction of 67 %. IMPRESSION: Suspicious for acute ischemia involving the left ventricular apex . Further investigation with direct catheter angiogram is likely warranted. [facility], , 01/24/2024 4:24 PM
== END | disposition home or self-care (01) ==
LOC: RADNMMAIN 07:41
PROVIDERS: ATTEND Family Medicine
DX: R94.31 Abnormal electrocardiogram [ECG] [EKG] (principal); Z86.79 Personal history of other diseases of the circulatory system; Z87.09 Personal history of other diseases of the respiratory system
CPT/HCPCS: 93017; 78452; A9500; J2785

== ENCOUNTER → 2024-03-13 | Outpatient (CLI) | payer MEDICARE, OTHER ==
[2024-03-13 15:51] LABS: ALT 18 U/L (8-44); AST 23 U/L (13-35); LDL Cholesterol,Calculated 100.7 mg/dL (0.0-131.0)
== END | disposition home or self-care (01) ==
LOC: LABWHC1 08:43
PROVIDERS: ATTEND Internal Medicine Interventional Cardiology
DX: E78.2 Mixed hyperlipidemia (principal)
CPT/HCPCS: 36415; 80061; 84450; 84460

== ENCOUNTER 2024-04-03 05:44 | Day surgery (SDC) | payer MEDICARE, OTHER ==
[2024-04-03] MEDS ORDERED: ATORVASTATIN 80 MG TAB PO STA (05:48)
[2024-04-03] MEDS ORDERED: ASPIRIN 325 MG TAB PO STA (05:48)
[2024-04-03] MEDS ORDERED: ALPRAZolam 0.25 MG TAB PO PRN (05:48)
[2024-04-03] MEDS ORDERED: NITROGLYCERIN SL TABS 0.4 MG TAB SUBLINGUAL PRN (05:48)
[2024-04-03] MEDS ORDERED: ALPRAZolam 0.5 MG TAB PO PRN (05:48)
[2024-04-03] MEDS: SODIUM CHLORIDE 0.9% 1,000 ML IV ONE (06:00)
[2024-04-03 06:35] LABS: Basophils # (A) 0.1 k/uL (0-0.2); Basophils % (A) 1 %; Eosinophils # (A) 0.3 k/uL (0-0.7); Eosinophils % (A) 4 %; HGB 13.8 gm/dL (11.4-16.0); Lymphocytes # (A) 3.1 k/uL (1.0-4.8); Lymphocytes % (A) 38 %; MCHC 32.9 g/dL (31.0-37.0); Mean Platelet Volume 6.4; Monocytes # (A) 0.3 k/uL (0-1.0); Monocytes % (A) 4 %; Neutrophils % (A) 51 %; Platelet Count 378 k/uL (150-450); RBC 4.94 m/uL (3.80-5.40); RDW 14.2 % (11.5-15.5); WBC 7.9 k/uL (3.8-10.6)
[2024-04-03 07:03] LABS: African American GFR (CKD) 66 (>60 ml/min/1.73 sqM); Anion Gap 6 mmol/L; Blood Urea Nitrogen 22 mg/dL (7-17); Calcium 9.2 mg/dL (8.4-10.2); Carbon Dioxide 30 mmol/L (22-30); Chloride 100 mmol/L (98-107); Glucose 94 mg/dL (74-99); Non-African American GFR(CKD) 57 (>60 ml/min/1.73 sqM); Potassium 4.3 mmol/L (3.5-5.1); Sodium 136 mmol/L (137-145)
[2024-04-03] MEDS: fentaNYL (PF) 50 MCG/1 ML VIAL IVP ONE (07:39)
[2024-04-03] MEDS: LIDOCAINE 1% INJ 10MG/ML (20 ML MDV) SQ ONE (07:39)
[2024-04-03] MEDS: VERAPAMIL SYRINGE (5 MG/10 ML) INTRAARTER ONE (07:40)
[2024-04-03] MEDS: HEPARIN SODIUM 1,000 UN/ML (10ML VL) IVP ONE (07:45)
[2024-04-03] MEDS: SODIUM CHLORIDE 0.9% 1,000 ML in EMPTY BAG 1 BAG IV SCH (07:50)
[2024-04-03] MEDS: HEPARIN SODIUM,PORCINE 10,000 UNIT in SODIUM CHLORIDE 0.9% 1,000 ML IRRIGATION PRN (07:50)
[2024-04-03] MEDS: HEPARIN SODIUM,PORCINE (1 ML) 2,500 UNIT in SODIUM CHLORIDE 0.9% 250 ML IRRIGATION PRN (07:51)
[2024-04-03] MEDS: IOPAMIDOL-370 100ML BTL INJ ONE (07:53)
[2024-04-03] MEDS ORDERED: RX INFO: IV CONTRAST WAS GIVEN 1 EACH MISC MISCELLANE PRN (08:09)
[2024-04-03] MEDS ORDERED: SODIUM CHLORIDE 0.9% 1,000 ML IV SCH (08:15)
--- NOTE | 2024-04-03 08:15 | P.CARDCATH ---
Date of Procedure: 04/03/24 Description of Procedure: Cardiac Catheterization: The patient is a 68-year-old female with known history of hypertension and hyperlipidemia, history of CAD who is scheduled to undergo shoulder surgery and was found to have an abnormal MPI. Recommendations were made regarding cardiac catheterization, the risks and the complications were discussed with the patient who is in full understanding and agreement. Procedure Description: Patient was brought to [facility] in fasting semi-sedated state after receiving Fentanyl and Benadryl achieiving moderate conscious sedated state. Using Xylocaine Anesthesia and modified Seldinger technique, a 6-Micronesian sheath was introduced in the right radial artery . Subsequently, selective coronary angiography was performed using a 5-Micronesian 3.5 bend Carly catheter. Multiple views of the coronary artery including hemiaxial views were obtained. The 5 Micronesian pigtail catheter was used to cross the aortic valve and LVEDP was calculated. Following that, catheter and sheath were removed. Hemostasis was obtained with deployment of vascular band . There was no immediate complication. Patient was returned to room in stable condition. Of note, the patient received a total of 4000 units of intravenous heparin as well as intra-arterial verapamil. Findings: Fluoroscopy: Severe calcifications of the coronary arteries was noted. Left main: This is a large size vessel, trifurcating into left main, ramus intermedius and left circumflex, left main has no obstructive disease LAD: This is a large size vessel, reaching to the apex, giving rise to a small diagonal branch. The proximal left anterior descending artery is heavily calcified and has a 20% plaque with no high-grade stenosis. The rest of the vessel has no high-grade stenosis Left circumflex: This is a nondominant small vessel giving rise to 1 obtuse marginal branch that has no significant obstructive disease RCA: This is a large dominant vessel, bifurcating into PDA and PLV calcified throughout its course. The proximal right coronary artery has 10 to 20% plaque. In the midsegment there is a 30 to 40% plaque, the rest of the vessel has no high-grade stenosis. Ramus intermedius: This is a large size vessel reaching to the apical lateral wall, it has no evidence of high-grade stenosis. Left Ventriculogram: Not performed Hemodynamics: There was no gradient across aortic valve, LVEDP was 16-18 mmHg Conclusion: 1. Heavily calcified coronary arteries 2. Moderate disease in the mid RCA 3. Mild disease in the proximal LAD 4. Right dominance Recommendations: I have recommended to continue medical therapy with the aggressive coronary risks modification initiated. The findings and the recommendations were discussed with the patient and the family and they were in full understanding and agreement. Duration of sedation is 15 minutes.
[2024-04-03] MEDS ORDERED: LISINOPRIL-HCTZ 10-12.5 MG 1 EACH TAB PO SCH (09:00)
[2024-04-03 11:39] VITALS: BP 117/61
[2024-04-03 12:00] VITALS: PULSE 67; RESP 16
[2024-04-03] MEDS ORDERED: PANTOPRAZOLE 40 MG TABLET PO SCH (17:30)
[2024-04-03] MEDS ORDERED: VENLAFAXINE HCL 37.5 MG TAB PO SCH (21:00)
[2024-04-03] MEDS ORDERED: ASPIRIN 81 MG PO SCH (21:00)
[2024-04-04] MEDS ORDERED: EZETIMIBE 10 MG TAB PO SCH (09:00)
== END 2024-04-03 12:06 | disposition home or self-care (01) ==
LOC: CATHCVL 05:44
PROVIDERS: ATTEND Internal Medicine Interventional Cardiology
DX: I25.10 Atherosclerotic heart disease of native coronary artery without angina pectoris (principal); I10 Essential (primary) hypertension; E78.2 Mixed hyperlipidemia; F17.210 Nicotine dependence, cigarettes, uncomplicated; Z88.2 Allergy status to sulfonamides; Z79.890 Hormone replacement therapy; Z79.899 Other long term (current) drug therapy
CPT/HCPCS: 93458; 80048; 85025; C1769 ×2; C1894; J1644 ×3; J2003; Q9967; J3010

== ENCOUNTER → 2024-07-20 | Outpatient (CLI) | payer MEDICARE, OTHER ==
[2024-07-20 15:24] LABS: ALT 15 U/L (8-44); AST 21 U/L (13-35); Chol/HDL Ratio 4.43 Ratio; LDL Cholesterol,Calculated 122.6 mg/dL (0.0-131.0)
== END | disposition home or self-care (01) ==
LOC: LABWHC1 10:19
PROVIDERS: ATTEND Internal Medicine Interventional Cardiology
DX: E78.2 Mixed hyperlipidemia (principal)
CPT/HCPCS: 36415; 80061; 84450; 84460